=== PATIENT | female | born 1985 | race American Indian/Alaskan Native ===

== ENCOUNTER 2020-11-21 17:38 | Outpatient (CLI) | payer OTHER, MEDICAID ==
[2020-11-21 18:20] VITALS: BP 119/77
[2020-11-21] MEDS ORDERED: ACETAMINOPHEN 500 MG TAB PO ONE (19:54)
[2020-11-21] MEDS ORDERED: LACTATED RINGERS 500 ML IV ONE (20:41)
== END 2020-11-21 19:23 | disposition home or self-care (01) ==
LOC: TRG 17:38 → LD 17:43 → APU 17:54 → TRG 19:23
PROVIDERS: ATTEND Obstetrics & Gynecology
DX: Z34.93 Encounter for supervision of normal pregnancy, unspecified, third trimester (principal); Z3A.31 31 weeks gestation of pregnancy
CPT/HCPCS: 59025

== ENCOUNTER 2021-02-06 19:55 | Outpatient (CLI) | payer OTHER, MEDICAID ==
[2021-02-06 20:44] VITALS: BP 128/75
[2021-02-06] MEDS ORDERED: LACTATED RINGERS 500 ML IV ONE (20:45)
[2021-02-06] MEDS ORDERED: LACTATED RINGERS 1,000 ML IV ONE (21:15)
[2021-02-06] MEDS ORDERED: TERBUTALINE 1 MG/1 ML INJ SUB-Q PRN (21:15)
[2021-02-06 21:42] LABS: Bacteria,Urine 1+ /HPF (Negative); Bilirubin,Urine NEG (Negative); Blood,Urine MOD (Negative); Calcium Oxalate Crystals,Urine 1+; Color,Urine Yellow (Yellow); Mucus,Urine 2+ /HPF; Protein,Urine <15 mg/dL mg/dL (Negative); Urobilinogen,Urine < 2.0 mg/dL (<2.0)
== END 2021-02-06 22:55 | disposition home or self-care (01) ==
LOC: TRG 19:55 → APU 19:58 → TRG 22:55
PROVIDERS: ATTEND Obstetrics & Gynecology
DX: O36.8130 Decreased fetal movements, third trimester, not applicable or unspecified (principal); O26.893 Other specified pregnancy related conditions, third trimester; R10.30 Lower abdominal pain, unspecified; O09.523 Supervision of elderly multigravida, third trimester; Z3A.32 32 weeks gestation of pregnancy
CPT/HCPCS: 59025; 81001; 96360; 96372; J3105; J7120

== ENCOUNTER 2021-03-03 21:43 | Inpatient (IN) | payer OTHER, MEDICAID ==
[2021-03-03] MEDS ORDERED: LACTATED RINGERS 1,000 ML IV ONE (23:27)
[2021-03-03] MEDS: LACTATED RINGERS 1,000 ML IV SCH (23:55)
[2021-03-04 00:01] LABS: Bacteria,Urine 2+ /HPF (Negative); Bilirubin,Urine NEG (Negative); Blood,Urine MOD (Negative); Calcium Oxalate Crystals,Urine 2+; Color,Urine Amber (Yellow); Hyaline Casts,Urine 2 /LPF; Mucus,Urine 3+ /HPF
[2021-03-04 00:02] LABS: Protein,Urine >500 mg/dL (Negative)
--- NOTE | 2021-03-04 00:13 | Event Note ---
Date: 03/03/21 36.1 wks EGA Pt presents to triage with c/o blurred vision and LITTLE, both of which have resolved spontaneously. Pt denies h/o preE. Recent visit's BP and labs in office reviewed with Dr. Arellano. BP severe range at this time. Orders placed for continued monitoring of BP for SSx of worsening, continuous monitoring, start IV and give 20mg labetalol IV stat, strict I&O, and repeated labs at this time. Monitor closely. Notify provider with any changes in status. RN notified and agrees to POC as ordered. Dr. Arellano made aware.
[2021-03-04 00:25] LABS: Hematocrit 36.5 % (30.3-42.9); Hemoglobin 12.5 gm/dl (10.1-14.3); Mean Corpuscular HGB Conc 34 % (30-34); Mean Corpuscular Volume 88 fl (79-97); Platelet Count 410 K/mm3 (140-440); Red Blood Count 4.15 M/mm3 (3.65-5.03); Red Cell Distribution Width 14.6 % (13.2-15.2)
[2021-03-04 00:48] LABS: Alanine Aminotransferase 13 units/L (7-56); Albumin 3.3 g/dL (3.9-5); Blood Urea Nitrogen 7 mg/dL (7-17); Calcium 9.4 mg/dL (8.4-10.2); Hemolysis Index 9
[2021-03-04 01:34] LABS: BUN/Creatinine Ratio 12; Bilirubin,Direct < 0.2 mg/dL (0-0.2)
[2021-03-04] MEDS ORDERED: MAGNESIUM SULFATE 4 GM/100 ML BAG IV ONE (01:50)
--- NOTE | 2021-03-04 01:59 | History and Physical Report ---
History of Present Illness Date of examination: 03/04/21 Chief complaint: blurred vision History of present illness: EDC Confirmation: 03/30/2021 Past History : 5 Term Births: 1 Premature Births: 1 Living Children: 2 Para: 2 Mult. Births: 0 Prev : 0 Prev. attempt? 0 Aborta: 2 Elect. Ab: 0 Spont. Ab: 2 Ectopics: 0 # 1 Delivery date: 2004 Weeks Gestation: 34 labor: yes Delivery type: Anesthesia type: epidural Delivery [place] Sex: Male weight: 7-14 Comments: Denies GDM # 2 Delivery date: 2006 Weeks Gestation: 4 Delivery type: SAB Comments: denies any complications # 3 Delivery date: 2006 Weeks Gestation: 36 Delivery type: Anesthesia type: epidural Delivery location: [place] 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 Infection History Hx of STD: none HIV Risk Eval: no Hepatitis B Risk Eval: low risk Personal hx. of genital herpes: no Partner hx. of genital herpes: no Rash, Viral, or Febrile illness since last LMP? no Varicella/Chicken Pox Status: Unknown TB Risk: no Genetic History ADVANCED MATERNAL AGE Congenital Heart Defect: Mom: no Dad: no Vega Disease: Mom: no Dad: no Thalassemia Mom: no Dad: no Neural Tube Defect Mom: no Dad: no Down's Syndrome Mom: no Dad: no Jeff-Sachs Mom: no Dad: no Sickle Cell Disease/Trait Mom: no Dad: no Hemophilia Mom: no Dad: no Muscular Dystrophy Mom: no Dad: no Cystic Fibrosis Mom: no Dad: no Sam Chorea Mom: no Dad: no Mental Retardation Mom: no Dad: no Fragile X Mom: no Dad: no Other Genetic/Chromosomal Disorder Mom: no Dad: no Child w/other defect Mom: no Dad: no Enviromental Exposures Xray Exposure: no Medication, drug, or alcohol use since LMP: no Chemical/Other Exposure: no Exposure to Cat Liter: no Hx of Parvovirus (Fifth Disease): no Occupational Exposure to Children: none Current Allergies (reviewed today): * POLLEN (Critical) * GRASS (Critical) * DUSTMITES (Critical) * CATS (Critical) * PEANUT BUTTER (Critical) Past History Past Medical History: other (see HPI) Past Surgical History: other (see HPI) [employer] History: other (see HPI) Family/Genetic History: other (SEE HPI) Social history: other (SEE HPI) - Obstetrical History Expected Date of Delivery: 03/30/21 Actual Gestation: 36 Week(s) 2 Day(s) : 5 Para: 2 Hx # Term Pregnancies: 1 Number of Pregnancies: 1 Spontaneous Abortions: 2 Induced : 0 Number of Living Children: 2 Medications and Allergies Allergies Allergy/AdvReac Type Severity Reaction Status Date / Time soy Allergy Intermediate Swelling Verified 03/04/21 04:36 latex Allergy Mild Hives Verified 03/04/21 04:36 peanut Allergy Mild Itching Verified 03/04/21 04:36 shellfish derived Allergy Mild Hives Verified 03/04/21 04:36 Home Medications Medication Instructions Recorded Confirmed Last Taken Type No Known Home Medications [No 08/01/15 08/01/15 Unknown History Reported Home Medications] Active Meds: Active Medications Lactated Ringer's (Lactated Ringers) 1,000 mls @ 125 mls/hr IV DIRECT SANDRA Last Admin: 03/03/21 23:55 Dose: 125 mls/hr Documented by: Magnesium Sulfate (Magnesium Sulfate 4gm/100ml) 4 gm in 100 mls @ 300 mls/hr IV ONCE ONE Stop: 03/04/21 02:09 Magnesium Sulfate (Magnesium Sulfate 40gm/1000ml) 40 gm in 1,000 mls @ 50 mls/hr IV DIRECT SANDRA Labetalol HCl (Labetalol 20 Mg/4 Ml Inj) 40 mg IV ONCE ONE Stop: 03/04/21 02:36 Review of Systems Constitutional: no chronic headaches Eyes: no blurred vision (NONE CURRENTLY), no tunnel vision, no blind spots Cardiovascular: no chest pain Respiratory: no shortness of breath Gastrointestinal: no abdominal pain Genitourinary: no vaginal bleeding, no leakage of fluid, no contractions Neurological: no headaches - Vital Signs Vital signs: Vital Signs Pulse Pulse Ox 92 H 98 03/03/21 23:11 03/03/21 23:11 Temp Pulse Resp BP Pulse Ox 97.7 F 96 H 18 159/94 97 03/04/21 00:48 03/04/21 01:47 03/03/21 23:13 03/04/21 01:38 03/04/21 01:47 - Physical Exam Breasts: Positive: deferred Cardiovascular: Regular rate Lungs: Positive: Normal air movement Abdomen: Positive: normal appearance, soft Genitourinary (Female): Positive: normal external genitalia, normal perenium Vulva: both: normal Vagina: Positive: normal moisture Uterus: Positive: normal size, normal contour, other (GRAVID) Anus/Rectum: Positive: normal perianal skin Extremities: Positive: normal - Obstetrical FHR: auscultation normal, category 1 Uterine Contraction Monitor Mode: External Cervical Dilatation: 0 Cervical Effacement Percentage: 0 station: -4 Uterine Contraction Pattern: Irregular Uterine Tone Measurement Phase: Resting Results Result Diagrams: 03/04/21 00:00 03/04/21 00:00 Abnormal lab results 03/03/21 03/04/21 03/04/21 Range/Units 23:30 00:00 00:00 WBC 11.4 H (4.5-11.0) K/mm3 Carbon Dioxide 20 L (22-30) mmol/L Albumin 3.3 L (3.9-5) g/dL Urine WBC (Auto) 13.0 H (0.0-6.0) /HPF All other labs normal. Tests: (1) Profile I ([id number]) Order Note: Clinical Information: SRC:UR HBsAg Screen Negative Negative *1 RPR Non Reactive Non Reactive *2 Rubella Antibodies, IgG 4.77 index Immune >0.99 *3 Non-immune <0.90 Equivocal 0.90 - 0.99 Immune >0.99 ABO Grouping O *4 Rh Factor Positive *5 Please note: Prior records for this patient's ABO / Rh type are not available for additional verification. Antibody Screen Negative Negative *6 WBC [H] 12.0 x10E3/uL 3.4-10.8 *7 RBC 4.12 x10E6/uL 3.77-5.28 *8 Hemoglobin 13.0 g/dL 11.1-15.9 *9 Hematocrit 38.3 % 34.0-46.6 *10 MCV 93 fL 79-97 *11 MCH 31.6 pg 26.6-33.0 *12 MCHC 33.9 g/dL 31.5-35.7 *13 RDW 12.8 % 11.7-15.4 *14 Platelets 406 x10E3/uL 150-450 *15 Neutrophils 78 % Not Estab. *16 Lymphs 14 % Not Estab. *17 Monocytes 6 % Not Estab. *18 Eos 1 % Not Estab. *19 Basos 0 % Not Estab. *20 ! Immature Cells <No Reported Value> *21 Neutrophils (Absolute) [H] 9.5 x10E3/uL 1.4-7.0 *22 Lymphs (Absolute) 1.6 x10E3/uL 0.7-3.1 *23 Monocytes(Absolute) 0.7 x10E3/uL 0.1-0.9 *24 Eos (Absolute) 0.1 x10E3/uL 0.0-0.4 *25 Baso (Absolute) 0.0 x10E3/uL 0.0-0.2 *26 ! Immature Granulocytes 1 % Not Estab. *27 ! Immature Grans (Abs) 0.1 x10E3/uL 0.0-0.1 *28 ! NRBC <No Reported Value> *29 Hematology Comments: <No Reported Value> *30 Tests: (2) HB Solu + Rflx Fra ([id number]) Hemoglobin (Hgb) Solubility Negative Negative *31 Tests: (3) HIV Ag/Ab with Reflex ([id number]) HIV Screen 4th Generation wRfx Non Reactive Non Reactive *32 Tests: (4) Varicella-Zoster V Ab, IgG ([id number]) ! Varicella Zoster IgG 1065 index Immune >165 *33 Negative <135 Equivocal 135 - 165 Positive >165 A positive result generally indicates exposure to the pathogen or administration of specific immunoglobulins, but it is not indication of active infection or stage of disease. Tests: (5) Gest. Diabetes 1-Hr Screen ([id number]) ! Gestational Diabetes Screen 108 mg/dL 65-139 *34 According to ADA, a glucose threshold of >139 mg/dL after 50-gram load identifies approximately 80% of women with gestational diabetes mellitus, while the sensitivity is further increased to approximately 90% by a threshold of >129 mg/dL. Tests: (6) HCV Ab w/Rflx to Verification ([id number]) ! HCV Ab <0.1 s/co ratio 0.0-0.9 *35 Tests: (7) Comment: ([id number]) ! Comment: SPRCS *36 Non reactive HCV antibody screen is consistent with no HCV infection, unless recent infection is suspected or other evidence exists to indicate HCV infection. Tests: (8) Urine Culture, Routine ([id number]) Urine Culture, Routine Final report *37 Tests: (9) Result ([id number]) ! Result 1 "Result Below..." *38 RESULT: Lactobacillus species 25,000-50,000 colony forming units per mL Susceptibility not normally performed on this organism. Assessment and Plan Phone call received for severe range BP. Orders given for labetalol 40mg IV now. Orders placed in EMR for Magnesium Sulfate IV. FHT's strip reviewed Cat 1. POC reviewed with pt and RN. Questions encouraged. Pt is without questions at this time, verbalizes understanding and agrees to POC. Dr. Arellano updated. Orders received to proceed with delivery for severe preeclampsia. - Patient Problems (1) Preeclampsia Current Visit: Yes Status: Acute Plan to address problem: Magnesium Sulfate ordered for seizure protection strict I&O preE labs IV antihypertensives PRN for severe range BP monitor closely for SSx of worsening preeclampsia and notify provider with any changes (2) 36 weeks gestation of Current Visit: Yes Status: Acute Plan to address problem: continuous monitoring AMFM consult ordered
[2021-03-04 02:48] LABS: Creatinine,Urine 131.8 mg/dL (0.1-20.0)
[2021-03-04] MEDS ORDERED: hydrALAZINE 20 MG/1 ML INJ IV ONE (03:16)
[2021-03-04] MEDS ORDERED: DINOPROSTONE 10 MG VAG SUPP VG ONE (03:44)
[2021-03-04] MEDS: MAGNESIUM SULFATE 40GM/1000ML 40 GM/1,000 ML BAG IV SCH (04:44)
[2021-03-04] MEDS: LACTATED RINGERS 1,000 ML IV SCH (06:32)
--- NOTE | 2021-03-04 07:58 | Progress Note ---
Assessment and Plan 35 yo @ 36.3 wks IOL w/ Cervidil for Severe Pre-E. Cont. Mag @ 2gm/hr, reassess PRN. - Patient Problems (1) 36 weeks gestation of Current Visit: Yes Status: Acute (2) Preeclampsia Current Visit: Yes Status: Acute Qualifiers: Trimester: third trimester Qualified Code(s): O14.93 - Unspecified pre- eclampsia, third trimester Plan to address problem: Mag 2gm/hr Strict I&Os Mag Levels q6hr IOL to start this AM w/ Cervidil Subjective - Subjective Date of service: 03/04/21 Principal diagnosis: IUP @ 36.3wks IOL for Severe Pre-E Patient reports: movement normal, other (h/a 06/10), no loss of fluid, no vaginal bleeding, no contractions Objective - Vital Signs Vital Signs: Vital Signs - 12hr 03/03/21 03/03/21 03/03/21 23:11 23:12 23:13 Temperature 98.7 F Pulse Rate 92 H 100 H 93 H Respiratory 18 Rate Blood Pressure 174/101 Blood Pressure 169/99 [Left] O2 Sat by Pulse 98 97 Oximetry O2 Sat by Pulse Oximetry [ Bilateral] 03/03/21 03/03/21 03/03/21 23:16 23:21 23:26 Temperature Pulse Rate 94 H 109 H 97 H Respiratory Rate Blood Pressure Blood Pressure [Left] O2 Sat by Pulse 98 98 97 Oximetry O2 Sat by Pulse Oximetry [ Bilateral] 03/03/21 03/03/21 03/03/21 23:27 23:31 23:36 Temperature Pulse Rate 90 95 H 97 H Respiratory Rate Blood Pressure 169/99 Blood Pressure [Left] O2 Sat by Pulse 98 98 Oximetry O2 Sat by Pulse Oximetry [ Bilateral] 03/03/21 03/03/21 03/03/21 23:41 23:42 23:46 Temperature Pulse Rate 95 H 97 H 96 H Respiratory Rate Blood Pressure 162/96 Blood Pressure [Left] O2 Sat by Pulse 99 98 Oximetry O2 Sat by Pulse Oximetry [ Bilateral] 03/03/21 03/03/21 03/03/21 23:51 23:56 23:58 Temperature Pulse Rate 97 H 95 H 87 Respiratory Rate Blood Pressure Blood Pressure [Left] O2 Sat by Pulse 99 98 93 Oximetry O2 Sat by Pulse Oximetry [ Bilateral] 03/04/21 03/04/21 03/04/21 00:00 00:01 00:06 Temperature Pulse Rate 86 89 98 H Respiratory Rate Blood Pressure 152/106 Blood Pressure [Left] O2 Sat by Pulse 98 98 Oximetry O2 Sat by Pulse Oximetry [ Bilateral] 03/04/21 03/04/21 03/04/21 00:08 00:09 00:11 Temperature Pulse Rate 96 H 100 H 91 H Respiratory Rate Blood Pressure 152/106 Blood Pressure [Left] O2 Sat by Pulse 94 98 Oximetry O2 Sat by Pulse Oximetry [ Bilateral] 03/04/21 03/04/21 03/04/21 00:13 00:16 00:42 Temperature Pulse Rate 90 97 H 93 H Respiratory Rate Blood Pressure 136/89 Blood Pressure [Left] O2 Sat by Pulse 98 98 Oximetry O2 Sat by Pulse Oximetry [ Bilateral] 03/04/21 03/04/21 03/04/21 00:47 00:48 00:52 Temperature 97.7 F Pulse Rate 99 H 93 H Respiratory Rate Blood Pressure Blood Pressure [Left] O2 Sat by Pulse 97 98 Oximetry O2 Sat by Pulse 97 Oximetry [ Bilateral] 03/04/21 03/04/21 03/04/21 00:53 00:57 01:02 Temperature Pulse Rate 98 H 94 H 95 H Respiratory Rate Blood Pressure 149/89 Blood Pressure [Left] O2 Sat by Pulse 93 98 98 Oximetry O2 Sat by Pulse Oximetry [ Bilateral] 03/04/21 03/04/21 03/04/21 01:07 01:08 01:12 Temperature Pulse Rate 97 H 95 H 94 H Respiratory Rate Blood Pressure 175/98 Blood Pressure [Left] O2 Sat by Pulse 99 98 Oximetry O2 Sat by Pulse Oximetry [ Bilateral] 03/04/21 03/04/21 03/04/21 01:17 01:22 01:24 Temperature Pulse Rate 88 93 H 91 H Respiratory Rate Blood Pressure 177/98 Blood Pressure [Left] O2 Sat by Pulse 98 97 Oximetry O2 Sat by Pulse Oximetry [ Bilateral] 03/04/21 03/04/21 03/04/21 01:27 01:32 01:37 Temperature Pulse Rate 95 H 92 H 92 H Respiratory Rate Blood Pressure Blood Pressure [Left] O2 Sat by Pulse 99 99 98 Oximetry O2 Sat by Pulse Oximetry [ Bilateral] 03/04/21 03/04/21 03/04/21 01:38 01:42 01:47 Temperature Pulse Rate 89 92 H 96 H Respiratory Rate Blood Pressure 159/94 Blood Pressure [Left] O2 Sat by Pulse 94 97 97 Oximetry O2 Sat by Pulse Oximetry [ Bilateral] 03/04/21 03/04/21 03/04/21 01:55 01:57 02:00 Temperature Pulse Rate 100 H 100 H 91 H Respiratory Rate Blood Pressure 179/100 Blood Pressure [Left] O2 Sat by Pulse 97 90 97 Oximetry O2 Sat by Pulse Oximetry [ Bilateral] 03/04/21 03/04/21 03/04/21 02:04 02:05 02:07 Temperature Pulse Rate 97 H 91 H 96 H Respiratory Rate Blood Pressure 179/100 160/94 Blood Pressure [Left] O2 Sat by Pulse 97 94 Oximetry O2 Sat by Pulse Oximetry [ Bilateral] 03/04/21 03/04/21 03/04/21 02:10 02:15 02:20 Temperature Pulse Rate 90 92 H 95 H Respiratory Rate Blood Pressure Blood Pressure [Left] O2 Sat by Pulse 97 98 97 Oximetry O2 Sat by Pulse Oximetry [ Bilateral] 03/04/21 03/04/21 03/04/21 02:23 02:25 02:28 Temperature Pulse Rate 99 H 95 H 97 H Respiratory Rate Blood Pressure 179/91 159/79 Blood Pressure [Left] O2 Sat by Pulse 90 98 90 Oximetry O2 Sat by Pulse Oximetry [ Bilateral] 03/04/21 03/04/21 03/04/21 02:30 02:35 02:38 Temperature Pulse Rate 96 H 95 H 91 H Respiratory Rate Blood Pressure 141/86 Blood Pressure [Left] O2 Sat by Pulse 99 98 89 Oximetry O2 Sat by Pulse Oximetry [ Bilateral] 03/04/21 03/04/21 03/04/21 02:40 02:45 02:50 Temperature Pulse Rate 86 90 94 H Respiratory Rate Blood Pressure Blood Pressure [Left] O2 Sat by Pulse 100 96 97 Oximetry O2 Sat by Pulse Oximetry [ Bilateral] 03/04/21 03/04/21 03/04/21 02:53 02:55 03:00 Temperature Pulse Rate 87 93 H 97 H Respiratory Rate Blood Pressure 136/84 Blood Pressure [Left] O2 Sat by Pulse 92 98 98 Oximetry O2 Sat by Pulse Oximetry [ Bilateral] 03/04/21 03/04/21 03/04/21 03:04 03:07 03:10 Temperature Pulse Rate 91 H 93 H 93 H Respiratory Rate Blood Pressure 133/83 Blood Pressure [Left] O2 Sat by Pulse 97 93 97 Oximetry O2 Sat by Pulse Oximetry [ Bilateral] 03/04/21 03/04/21 03/04/21 03:15 03:20 03:23 Temperature Pulse Rate 94 H 96 H 98 H Respiratory Rate Blood Pressure 130/66 Blood Pressure [Left] O2 Sat by Pulse 96 96 93 Oximetry O2 Sat by Pulse Oximetry [ Bilateral] 03/04/21 03/04/21 03/04/21 03:25 03:30 03:35 Temperature Pulse Rate 101 H 93 H 92 H Respiratory Rate Blood Pressure Blood Pressure [Left] O2 Sat by Pulse 98 97 96 Oximetry O2 Sat by Pulse Oximetry [ Bilateral] 03/04/21 03/04/21 03/04/21 03:37 03:40 03:45 Temperature Pulse Rate 85 98 H 92 H Respiratory Rate Blood Pressure 133/72 Blood Pressure [Left] O2 Sat by Pulse 92 96 97 Oximetry O2 Sat by Pulse Oximetry [ Bilateral] 03/04/21 03/04/21 03/04/21 03:50 03:52 03:55 Temperature Pulse Rate 98 H 95 H 101 H Respiratory Rate Blood Pressure 135/75 Blood Pressure [Left] O2 Sat by Pulse 97 94 97 Oximetry O2 Sat by Pulse Oximetry [ Bilateral] 03/04/21 03/04/21 03/04/21 04:00 04:05 04:07 Temperature Pulse Rate 93 H 93 H 91 H Respiratory Rate Blood Pressure 138/79 Blood Pressure [Left] O2 Sat by Pulse 97 97 Oximetry O2 Sat by Pulse Oximetry [ Bilateral] 03/04/21 03/04/21 03/04/21 04:10 04:15 04:20 Temperature Pulse Rate 92 H 91 H 95 H Respiratory Rate Blood Pressure Blood Pressure [Left] O2 Sat by Pulse 97 97 97 Oximetry O2 Sat by Pulse Oximetry [ Bilateral] 03/04/21 03/04/21 03/04/21 04:22 04:25 04:30 Temperature Pulse Rate 97 H 100 H 91 H Respiratory Rate Blood Pressure 124/63 Blood Pressure [Left] O2 Sat by Pulse 94 97 97 Oximetry O2 Sat by Pulse Oximetry [ Bilateral] 03/04/21 03/04/21 03/04/21 04:35 04:37 04:40 Temperature Pulse Rate 97 H 94 H 92 H Respiratory Rate Blood Pressure 130/61 Blood Pressure [Left] O2 Sat by Pulse 98 90 98 Oximetry O2 Sat by Pulse Oximetry [ Bilateral] 03/04/21 03/04/21 03/04/21 04:45 04:50 04:52 Temperature Pulse Rate 89 89 87 Respiratory Rate Blood Pressure 133/71 Blood Pressure [Left] O2 Sat by Pulse 98 98 Oximetry O2 Sat by Pulse Oximetry [ Bilateral] 03/04/21 03/04/21 03/04/21 04:55 05:00 05:05 Temperature Pulse Rate 90 94 H 100 H Respiratory Rate Blood Pressure Blood Pressure [Left] O2 Sat by Pulse 97 98 97 Oximetry O2 Sat by Pulse Oximetry [ Bilateral] 03/04/21 03/04/21 03/04/21 05:08 05:10 05:15 Temperature Pulse Rate 94 H 90 93 H Respiratory Rate Blood Pressure 141/80 Blood Pressure [Left] O2 Sat by Pulse 98 97 Oximetry O2 Sat by Pulse Oximetry [ Bilateral] 03/04/21 03/04/21 03/04/21 05:20 05:22 05:25 Temperature Pulse Rate 93 H 93 H 96 H Respiratory Rate Blood Pressure 131/73 Blood Pressure [Left] O2 Sat by Pulse 98 92 99 Oximetry O2 Sat by Pulse Oximetry [ Bilateral] 03/04/21 03/04/21 03/04/21 05:30 05:35 05:38 Temperature Pulse Rate 92 H 92 H 91 H Respiratory Rate Blood Pressure 131/72 Blood Pressure [Left] O2 Sat by Pulse 97 98 93 Oximetry O2 Sat by Pulse Oximetry [ Bilateral] 03/04/21 03/04/21 03/04/21 05:40 05:45 05:50 Temperature Pulse Rate 90 89 93 H Respiratory Rate Blood Pressure Blood Pressure [Left] O2 Sat by Pulse 97 97 97 Oximetry O2 Sat by Pulse Oximetry [ Bilateral] 03/04/21 03/04/21 03/04/21 05:52 05:55 06:00 Temperature Pulse Rate 89 92 H 90 Respiratory Rate Blood Pressure 130/68 Blood Pressure [Left] O2 Sat by Pulse 94 96 96 Oximetry O2 Sat by Pulse Oximetry [ Bilateral] 03/04/21 03/04/21 03/04/21 06:05 06:07 06:08 Temperature Pulse Rate 98 H 84 88 Respiratory Rate Blood Pressure 138/83 Blood Pressure [Left] O2 Sat by Pulse 98 94 Oximetry O2 Sat by Pulse Oximetry [ Bilateral] 03/04/21 03/04/21 03/04/21 06:10 06:15 06:20 Temperature Pulse Rate 88 96 H 87 Respiratory Rate Blood Pressure Blood Pressure [Left] O2 Sat by Pulse 97 96 99 Oximetry O2 Sat by Pulse Oximetry [ Bilateral] 03/04/21 03/04/21 03/04/21 06:23 06:25 06:30 Temperature Pulse Rate 88 94 H 90 Respiratory Rate Blood Pressure 152/87 Blood Pressure [Left] O2 Sat by Pulse 99 99 Oximetry O2 Sat by Pulse Oximetry [ Bilateral] 03/04/21 03/04/21 03/04/21 06:35 06:37 06:40 Temperature Pulse Rate 94 H 93 H 90 Respiratory Rate Blood Pressure 154/89 Blood Pressure [Left] O2 Sat by Pulse 99 99 Oximetry O2 Sat by Pulse Oximetry [ Bilateral] 03/04/21 03/04/21 03/04/21 06:45 06:50 06:52 Temperature Pulse Rate 90 89 89 Respiratory Rate Blood Pressure 148/83 Blood Pressure [Left] O2 Sat by Pulse 98 98 Oximetry O2 Sat by Pulse Oximetry [ Bilateral] 03/04/21 03/04/21 03/04/21 06:55 06:59 07:05 Temperature Pulse Rate 92 H 91 H 93 H Respiratory Rate Blood Pressure Blood Pressure [Left] O2 Sat by Pulse 98 99 99 Oximetry O2 Sat by Pulse Oximetry [ Bilateral] 03/04/21 03/04/21 03/04/21 07:08 07:10 07:15 Temperature Pulse Rate 93 H 92 H 89 Respiratory Rate Blood Pressure 141/70 Blood Pressure [Left] O2 Sat by Pulse 98 98 Oximetry O2 Sat by Pulse Oximetry [ Bilateral] 03/04/21 03/04/21 03/04/21 07:19 07:20 07:25 Temperature 97.7 F Pulse Rate 97 H 91 H 98 H Respiratory 18 Rate Blood Pressure Blood Pressure 141/70 [Left] O2 Sat by Pulse 98 98 99 Oximetry O2 Sat by Pulse 99 Oximetry [ Bilateral] 03/04/21 03/04/21 03/04/21 07:30 07:35 07:40 Temperature Pulse Rate 90 93 H 93 H Respiratory Rate Blood Pressure Blood Pressure [Left] O2 Sat by Pulse 98 98 97 Oximetry O2 Sat by Pulse Oximetry [ Bilateral] 03/04/21 03/04/21 07:45 07:50 Temperature Pulse Rate 88 93 H Respiratory Rate Blood Pressure Blood Pressure [Left] O2 Sat by Pulse 98 97 Oximetry O2 Sat by Pulse Oximetry [ Bilateral] - Exam Lungs: Normal air movement Abdomen: Present: normal appearance, soft FHR: category 2 Uterine Contraction Monitor Mode: External Uterine Contraction Pattern: Absent - Labs Labs: Abnormal Labs 03/03/21 03/04/21 03/04/21 23:30 00:00 00:00 WBC 11.4 H Carbon Dioxide 20 L Albumin 3.3 L Urine WBC (Auto) 13.0 H Urine Creatinine Urine Total Protein 03/04/21 Unknown WBC Carbon Dioxide Albumin Urine WBC (Auto) Urine Creatinine 131.8 H Urine Total Protein 263 H Laboratory Results - last 24 hr 03/03/21 03/04/21 03/04/21 23:30 00:00 00:00 WBC 11.4 H RBC 4.15 Hgb 12.5 Hct 36.5 MCV 88 MCH 30 MCHC 34 RDW 14.6 Plt Count 410 Sodium 139 Potassium 3.6 Chloride 105.2 Carbon Dioxide 20 L Anion Gap 17 BUN 7 Creatinine 0.6 Estimated GFR > 60 BUN/Creatinine Ratio 12 Glucose 98 Uric Acid Calcium 9.4 Total Bilirubin 0.30 Direct Bilirubin < 0.2 Indirect Bilirubin 0.1 AST 21 ALT 13 Alkaline Phosphatase 116 Total Protein 6.9 Albumin 3.3 L Albumin/Globulin Ratio 0.9 Urine Color Jocelyn Urine Turbidity Cloudy Urine pH 5.0 Ur Specific [place] 1.030 Urine Protein >500 Urine Glucose (UA) 50 Urine Ketones Tr Urine Blood Mod Urine Nitrite Neg Urine Bilirubin Neg Urine Urobilinogen 2.0 Ur Leukocyte Esterase Neg Urine WBC (Auto) 13.0 H Urine RBC (Auto) 74.0 U Epithel Cells (Auto) 6.0 Urine Bacteria (Auto) 2+ Calcium Oxalate Crystal 2+ Hyaline Casts 2 Urine Mucus 3+ Urine Yeast (Budding) 1+ Urine Creatinine Protein/Creatinin Ratio Urine Total Protein Syphilis IgG Antibody Blood Type Antibody Screen 03/04/21 03/04/21 03/04/21 00:00 00:00 00:00 WBC RBC Hgb Hct MCV MCH MCHC RDW Plt Count Sodium Potassium Chloride Carbon Dioxide Anion Gap BUN Creatinine Estimated GFR BUN/Creatinine Ratio Glucose Uric Acid 4.6 Calcium Total Bilirubin Direct Bilirubin Indirect Bilirubin AST ALT Alkaline Phosphatase Total Protein Albumin Albumin/Globulin Ratio Urine Color Urine Turbidity Urine pH Ur Specific [place] Urine Protein Urine Glucose (UA) Urine Ketones Urine Blood Urine Nitrite Urine Bilirubin Urine Urobilinogen Ur Leukocyte Esterase Urine WBC (Auto) Urine RBC (Auto) U Epithel Cells (Auto) Urine Bacteria (Auto) Calcium Oxalate Crystal Hyaline Casts Urine Mucus Urine Yeast (Budding) Urine Creatinine Protein/Creatinin Ratio Urine Total Protein Syphilis IgG Antibody Nonreactive Blood Type O POSITIVE Antibody Screen Negative 03/04/21 Unknown WBC RBC Hgb Hct MCV MCH MCHC RDW Plt Count Sodium Potassium Chloride Carbon Dioxide Anion Gap BUN Creatinine Estimated GFR BUN/Creatinine Ratio Glucose Uric Acid Calcium Total Bilirubin Direct Bilirubin Indirect Bilirubin AST ALT Alkaline Phosphatase Total Protein Albumin Albumin/Globulin Ratio Urine Color Urine Turbidity Urine pH Ur Specific [place] Urine Protein Urine Glucose (UA) Urine Ketones Urine Blood Urine Nitrite Urine Bilirubin Urine Urobilinogen Ur Leukocyte Esterase Urine WBC (Auto) Urine RBC (Auto) U Epithel Cells (Auto) Urine Bacteria (Auto) Calcium Oxalate Crystal Hyaline Casts Urine Mucus Urine Yeast (Budding) Urine Creatinine 131.8 H Protein/Creatinin Ratio 2.00 Urine Total Protein 263 H Syphilis IgG Antibody Blood Type Antibody Screen
[2021-03-04] MEDS ORDERED: DINOPROSTONE 10 MG VAG SUPP VG SCH (08:30)
[2021-03-04] MEDS ORDERED: ACETAMINOPHEN 500 MG TAB PO ONE (17:30)
--- NOTE | 2021-03-04 20:27 | Progress Note ---
Assessment and Plan A: 35 y.o. @ 36.3 wks, IOL d/t severe pre eclampsia. Cervical exam /-3. P: Continue with magnesium infusion. Ultrasound to verify presentation. Cervidil removed. Subjective - Subjective Date of service: 03/04/21 Principal diagnosis: IUP @ 36.3wks IOL for Severe Pre-E Patient reports: movement normal, contractions Objective - Vital Signs Vital Signs: Vital Signs - 12hr 03/04/21 03/04/21 03/04/21 08:25 08:30 08:35 Temperature Pulse Rate 96 H 98 H 92 H Respiratory Rate Blood Pressure Blood Pressure [Left] O2 Sat by Pulse 99 98 99 Oximetry 03/04/21 03/04/21 03/04/21 08:40 08:45 08:50 Temperature Pulse Rate 89 87 89 Respiratory Rate Blood Pressure Blood Pressure [Left] O2 Sat by Pulse 98 99 99 Oximetry 03/04/21 03/04/21 03/04/21 08:55 09:00 09:05 Temperature Pulse Rate 95 H 91 H 90 Respiratory Rate Blood Pressure Blood Pressure [Left] O2 Sat by Pulse 99 99 99 Oximetry 03/04/21 03/04/21 03/04/21 09:10 09:14 09:15 Temperature Pulse Rate 94 H 93 H 93 H Respiratory Rate Blood Pressure 146/74 Blood Pressure [Left] O2 Sat by Pulse 98 96 Oximetry 03/04/21 03/04/21 03/04/21 09:20 09:25 09:30 Temperature Pulse Rate 92 H 99 H 95 H Respiratory Rate Blood Pressure Blood Pressure [Left] O2 Sat by Pulse 99 98 97 Oximetry 03/04/21 03/04/21 03/04/21 09:35 09:40 09:45 Temperature Pulse Rate 94 H 92 H 94 H Respiratory Rate Blood Pressure Blood Pressure [Left] O2 Sat by Pulse 97 97 96 Oximetry 03/04/21 03/04/21 03/04/21 09:50 09:55 09:59 Temperature Pulse Rate 96 H 95 H 93 H Respiratory Rate Blood Pressure 135/69 Blood Pressure [Left] O2 Sat by Pulse 95 96 Oximetry 03/04/21 03/04/21 03/04/21 10:00 10:05 10:10 Temperature Pulse Rate 96 H 93 H 94 H Respiratory Rate Blood Pressure Blood Pressure [Left] O2 Sat by Pulse 92 98 97 Oximetry 03/04/21 03/04/21 03/04/21 10:14 10:15 10:20 Temperature Pulse Rate 96 H 95 H 105 H Respiratory Rate Blood Pressure 135/61 Blood Pressure [Left] O2 Sat by Pulse 94 99 Oximetry 03/04/21 03/04/21 03/04/21 10:25 10:30 10:35 Temperature Pulse Rate 93 H 94 H 85 Respiratory Rate Blood Pressure Blood Pressure [Left] O2 Sat by Pulse 98 98 99 Oximetry 03/04/21 03/04/21 03/04/21 10:40 10:45 10:50 Temperature Pulse Rate 93 H 103 H 97 H Respiratory Rate Blood Pressure Blood Pressure [Left] O2 Sat by Pulse 99 99 96 Oximetry 03/04/21 03/04/21 03/04/21 10:55 11:00 11:05 Temperature Pulse Rate 92 H 93 H 97 H Respiratory Rate Blood Pressure Blood Pressure [Left] O2 Sat by Pulse 98 97 97 Oximetry 03/04/21 03/04/21 03/04/21 11:09 11:10 11:15 Temperature 98.1 F Pulse Rate 95 H 91 H 98 H Respiratory 17 Rate Blood Pressure 148/85 Blood Pressure 148/85 [Left] O2 Sat by Pulse 97 99 Oximetry 03/04/21 03/04/21 03/04/21 11:20 11:25 11:30 Temperature Pulse Rate 91 H 92 H 94 H Respiratory Rate Blood Pressure Blood Pressure [Left] O2 Sat by Pulse 97 96 98 Oximetry 03/04/21 03/04/21 03/04/21 11:35 11:40 11:45 Temperature Pulse Rate 101 H 95 H 97 H Respiratory Rate Blood Pressure Blood Pressure [Left] O2 Sat by Pulse 98 99 99 Oximetry 03/04/21 03/04/21 03/04/21 11:50 11:55 12:00 Temperature Pulse Rate 99 H 95 H 96 H Respiratory Rate Blood Pressure Blood Pressure [Left] O2 Sat by Pulse 97 97 99 Oximetry 03/04/21 03/04/21 03/04/21 12:05 12:09 12:10 Temperature Pulse Rate 101 H 94 H 96 H Respiratory Rate Blood Pressure 147/84 Blood Pressure [Left] O2 Sat by Pulse 98 93 96 Oximetry 03/04/21 03/04/21 03/04/21 12:15 12:18 12:19 Temperature Pulse Rate 95 H 97 H 99 H Respiratory Rate Blood Pressure Blood Pressure [Left] O2 Sat by Pulse 96 94 96 Oximetry 03/04/21 03/04/21 03/04/21 12:23 12:25 12:30 Temperature Pulse Rate 96 H 95 H 95 H Respiratory Rate Blood Pressure Blood Pressure [Left] O2 Sat by Pulse 94 95 98 Oximetry 03/04/21 03/04/21 03/04/21 12:34 12:35 12:40 Temperature Pulse Rate 100 H 97 H 98 H Respiratory Rate Blood Pressure Blood Pressure [Left] O2 Sat by Pulse 93 95 94 Oximetry 03/04/21 03/04/21 03/04/21 12:45 12:50 12:55 Temperature Pulse Rate 104 H 98 H 99 H Respiratory Rate Blood Pressure Blood Pressure [Left] O2 Sat by Pulse 96 98 98 Oximetry 03/04/21 03/04/21 03/04/21 13:00 13:05 13:09 Temperature Pulse Rate 99 H 99 H 101 H Respiratory Rate Blood Pressure 127/68 Blood Pressure [Left] O2 Sat by Pulse 98 97 94 Oximetry 03/04/21 03/04/21 03/04/21 13:10 13:15 13:20 Temperature Pulse Rate 100 H 99 H 100 H Respiratory Rate Blood Pressure Blood Pressure [Left] O2 Sat by Pulse 97 97 97 Oximetry 03/04/21 03/04/21 03/04/21 13:25 13:28 13:30 Temperature Pulse Rate 101 H 105 H 105 H Respiratory Rate Blood Pressure Blood Pressure [Left] O2 Sat by Pulse 96 91 97 Oximetry 03/04/21 03/04/21 03/04/21 13:35 13:40 13:45 Temperature Pulse Rate 99 H 97 H 98 H Respiratory Rate Blood Pressure Blood Pressure [Left] O2 Sat by Pulse 98 98 97 Oximetry 03/04/21 03/04/21 03/04/21 13:50 13:55 14:00 Temperature Pulse Rate 98 H 95 H 101 H Respiratory Rate Blood Pressure Blood Pressure [Left] O2 Sat by Pulse 99 94 97 Oximetry 03/04/21 03/04/21 03/04/21 14:05 14:10 14:11 Temperature Pulse Rate 101 H 92 H 100 H Respiratory Rate Blood Pressure 147/87 Blood Pressure [Left] O2 Sat by Pulse 98 97 92 Oximetry 10/09/1903/04/21 03/04/21 14:15 14:20 14:25 Temperature Pulse Rate 107 H 99 H 96 H Respiratory Rate Blood Pressure Blood Pressure [Left] O2 Sat by Pulse 97 97 96 Oximetry 03/04/21 03/04/21 03/04/21 14:30 14:32 14:35 Temperature Pulse Rate 95 H 99 H 99 H Respiratory Rate Blood Pressure Blood Pressure [Left] O2 Sat by Pulse 95 94 95 Oximetry 03/04/21 03/04/21 03/04/21 14:37 14:40 14:45 Temperature Pulse Rate 95 H 93 H 100 H Respiratory Rate Blood Pressure Blood Pressure [Left] O2 Sat by Pulse 94 96 97 Oximetry 03/04/21 03/04/21 03/04/21 14:50 14:52 14:55 Temperature 98.2 F Pulse Rate 92 H 96 H 90 Respiratory 18 Rate Blood Pressure Blood Pressure 147/87 [Left] O2 Sat by Pulse 96 96 97 Oximetry 03/04/21 03/04/21 03/04/21 15:00 15:05 15:09 Temperature Pulse Rate 90 91 H 95 H Respiratory Rate Blood Pressure 115/53 Blood Pressure [Left] O2 Sat by Pulse 97 97 94 Oximetry 03/04/21 03/04/21 03/04/21 15:10 15:15 15:18 Temperature Pulse Rate 96 H 94 H 91 H Respiratory Rate Blood Pressure Blood Pressure [Left] O2 Sat by Pulse 96 96 93 Oximetry 03/04/21 03/04/21 03/04/21 15:20 15:24 15:25 Temperature Pulse Rate 96 H 94 H 95 H Respiratory Rate Blood Pressure Blood Pressure [Left] O2 Sat by Pulse 97 94 94 Oximetry 03/04/21 03/04/21 03/04/21 15:29 15:30 15:35 Temperature Pulse Rate 95 H 96 H 95 H Respiratory Rate Blood Pressure Blood Pressure [Left] O2 Sat by Pulse 94 95 95 Oximetry 03/04/21 03/04/21 03/04/21 15:40 15:45 15:50 Temperature Pulse Rate 96 H 94 H 92 H Respiratory Rate Blood Pressure Blood Pressure [Left] O2 Sat by Pulse 96 98 97 Oximetry 03/04/21 03/04/21 03/04/21 15:55 16:00 16:05 Temperature Pulse Rate 89 92 H 95 H Respiratory Rate Blood Pressure Blood Pressure [Left] O2 Sat by Pulse 97 98 98 Oximetry 03/04/21 03/04/21 03/04/21 16:10 16:15 16:20 Temperature Pulse Rate 94 H 92 H 90 Respiratory Rate Blood Pressure 114/52 Blood Pressure [Left] O2 Sat by Pulse 93 98 97 Oximetry 03/04/21 03/04/21 03/04/21 16:25 16:30 16:35 Temperature Pulse Rate 92 H 87 91 H Respiratory Rate Blood Pressure Blood Pressure [Left] O2 Sat by Pulse 97 98 98 Oximetry 03/04/21 03/04/21 03/04/21 16:40 16:45 16:50 Temperature Pulse Rate 93 H 85 95 H Respiratory Rate Blood Pressure Blood Pressure [Left] O2 Sat by Pulse 97 99 98 Oximetry 03/04/21 03/04/21 03/04/21 16:55 17:00 17:05 Temperature Pulse Rate 87 89 90 Respiratory Rate Blood Pressure Blood Pressure [Left] O2 Sat by Pulse 98 96 97 Oximetry 03/04/21 03/04/21 03/04/21 17:09 17:10 17:15 Temperature Pulse Rate 90 92 H 94 H Respiratory Rate Blood Pressure 133/66 Blood Pressure [Left] O2 Sat by Pulse 97 98 Oximetry 03/04/21 03/04/21 03/04/21 17:40 17:45 17:50 Temperature Pulse Rate 86 88 90 Respiratory Rate Blood Pressure Blood Pressure [Left] O2 Sat by Pulse 99 97 97 Oximetry 03/04/21 03/04/21 03/04/21 17:55 18:00 18:05 Temperature Pulse Rate 89 86 92 H Respiratory Rate Blood Pressure Blood Pressure [Left] O2 Sat by Pulse 98 98 98 Oximetry 03/04/21 03/04/21 03/04/21 18:10 18:11 18:15 Temperature Pulse Rate 90 88 89 Respiratory Rate Blood Pressure 131/59 Blood Pressure [Left] O2 Sat by Pulse 93 98 Oximetry 03/04/21 03/04/21 03/04/21 18:20 18:25 18:30 Temperature Pulse Rate 88 87 84 Respiratory Rate Blood Pressure Blood Pressure [Left] O2 Sat by Pulse 99 98 98 Oximetry 03/04/21 03/04/21 03/04/21 18:35 18:40 18:45 Temperature Pulse Rate 84 87 86 Respiratory Rate Blood Pressure Blood Pressure [Left] O2 Sat by Pulse 97 98 98 Oximetry 03/04/21 03/04/21 03/04/21 18:50 18:55 19:00 Temperature Pulse Rate 86 88 88 Respiratory Rate Blood Pressure Blood Pressure [Left] O2 Sat by Pulse 97 98 97 Oximetry 03/04/21 03/04/21 03/04/21 19:05 19:10 19:15 Temperature Pulse Rate 84 86 89 Respiratory Rate Blood Pressure 131/73 Blood Pressure [Left] O2 Sat by Pulse 98 93 97 Oximetry 03/04/21 03/04/21 03/04/21 19:20 19:25 19:30 Temperature Pulse Rate 86 83 85 Respiratory Rate Blood Pressure Blood Pressure [Left] O2 Sat by Pulse 97 98 97 Oximetry 03/04/21 03/04/21 03/04/21 19:35 19:40 19:45 Temperature Pulse Rate 85 88 90 Respiratory Rate Blood Pressure Blood Pressure [Left] O2 Sat by Pulse 98 99 97 Oximetry 03/04/21 03/04/21 03/04/21 19:50 19:55 20:00 Temperature Pulse Rate 93 H 93 H 83 Respiratory Rate Blood Pressure Blood Pressure [Left] O2 Sat by Pulse 97 96 97 Oximetry 03/04/21 03/04/21 03/04/21 20:05 20:10 20:15 Temperature Pulse Rate 90 86 88 Respiratory Rate Blood Pressure 141/82 Blood Pressure [Left] O2 Sat by Pulse 97 99 98 Oximetry 03/04/21 20:20 Temperature Pulse Rate 87 Respiratory Rate Blood Pressure Blood Pressure [Left] O2 Sat by Pulse 98 Oximetry - Exam Narrative Exam: Pt denies LITTLE, blurred vision, spots before her eyes, chest pain, shortness of breath, and upper abdominal pain. Pt with c/o a lot of ctxs. Cervical exam /-3. Unable to tell presenting part at this time. Will order u/s to verify. Breasts: deferred Cardiovascular: Regular rate Lungs: Normal air movement Abdomen: Present: normal appearance, soft Vulva: both: normal Uterus: Present: normal FHR: category 1 Uterine Contraction Monitor Mode: External Cervical Dilatation: 3 Cervical Effacement Percentage: 70 station: -3 Uterine Contraction Pattern: Regular Uterine Tone Measurement Phase: Resting Uterine Contraction Intensity: Moderate - Labs Labs: Abnormal Labs 03/03/21 03/04/21 03/04/21 23:30 00:00 00:00 WBC 11.4 H Carbon Dioxide 20 L Magnesium Albumin 3.3 L Urine WBC (Auto) 13.0 H Urine Creatinine Urine Total Protein 03/04/21 03/04/21 13:58 Unknown WBC Carbon Dioxide Magnesium 4.30 H Albumin Urine WBC (Auto) Urine Creatinine 131.8 H Urine Total Protein 263 H Laboratory Results - last 24 hr 03/03/21 03/04/21 03/04/21 23:30 00:00 00:00 WBC 11.4 H RBC 4.15 Hgb 12.5 Hct 36.5 MCV 88 MCH 30 MCHC 34 RDW 14.6 Plt Count 410 Sodium 139 Potassium 3.6 Chloride 105.2 Carbon Dioxide 20 L Anion Gap 17 BUN 7 Creatinine 0.6 Estimated GFR > 60 BUN/Creatinine Ratio 12 Glucose 98 Uric Acid Calcium 9.4 Magnesium Total Bilirubin 0.30 Direct Bilirubin < 0.2 Indirect Bilirubin 0.1 AST 21 ALT 13 Alkaline Phosphatase 116 Total Protein 6.9 Albumin 3.3 L Albumin/Globulin Ratio 0.9 Urine Color Jocelyn Urine Turbidity Cloudy Urine pH 5.0 Ur Specific [place] 1.030 Urine Protein >500 Urine Glucose (UA) 50 Urine Ketones Tr Urine Blood Mod Urine Nitrite Neg Urine Bilirubin Neg Urine Urobilinogen 2.0 Ur Leukocyte Esterase Neg Urine WBC (Auto) 13.0 H Urine RBC (Auto) 74.0 U Epithel Cells (Auto) 6.0 Urine Bacteria (Auto) 2+ Calcium Oxalate Crystal 2+ Hyaline Casts 2 Urine Mucus 3+ Urine Yeast (Budding) 1+ Urine Creatinine Protein/Creatinin Ratio Urine Total Protein Syphilis IgG Antibody Blood Type Antibody Screen 03/04/21 03/04/21 03/04/21 00:00 00:00 00:00 WBC RBC Hgb Hct MCV MCH MCHC RDW Plt Count Sodium Potassium Chloride Carbon Dioxide Anion Gap BUN Creatinine Estimated GFR BUN/Creatinine Ratio Glucose Uric Acid 4.6 Calcium Magnesium Total Bilirubin Direct Bilirubin Indirect Bilirubin AST ALT Alkaline Phosphatase Total Protein Albumin Albumin/Globulin Ratio Urine Color Urine Turbidity Urine pH Ur Specific [place] Urine Protein Urine Glucose (UA) Urine Ketones Urine Blood Urine Nitrite Urine Bilirubin Urine Urobilinogen Ur Leukocyte Esterase Urine WBC (Auto) Urine RBC (Auto) U Epithel Cells (Auto) Urine Bacteria (Auto) Calcium Oxalate Crystal Hyaline Casts Urine Mucus Urine Yeast (Budding) Urine Creatinine Protein/Creatinin Ratio Urine Total Protein Syphilis IgG Antibody Nonreactive Blood Type O POSITIVE Antibody Screen Negative 03/04/21 03/04/21 13:58 Unknown WBC RBC Hgb Hct MCV MCH MCHC RDW Plt Count Sodium Potassium Chloride Carbon Dioxide Anion Gap BUN Creatinine Estimated GFR BUN/Creatinine Ratio Glucose Uric Acid Calcium Magnesium 4.30 H Total Bilirubin Direct Bilirubin Indirect Bilirubin AST ALT Alkaline Phosphatase Total Protein Albumin Albumin/Globulin Ratio Urine Color Urine Turbidity Urine pH Ur Specific [place] Urine Protein Urine Glucose (UA) Urine Ketones Urine Blood Urine Nitrite Urine Bilirubin Urine Urobilinogen Ur Leukocyte Esterase Urine WBC (Auto) Urine RBC (Auto) U Epithel Cells (Auto) Urine Bacteria (Auto) Calcium Oxalate Crystal Hyaline Casts Urine Mucus Urine Yeast (Budding) Urine Creatinine 131.8 H Protein/Creatinin Ratio 2.00 Urine Total Protein 263 H Syphilis IgG Antibody Blood Type Antibody Screen
[2021-03-04] MEDS ORDERED: OXYTOCIN DRIP 30 UNITS/500 ML BAG IV SCH (21:00)
[2021-03-04] MEDS ORDERED: MAGNESIUM HYDROXIDE (MOM) ORAL LIQD UDC PO PRN (21:26)
[2021-03-04] MEDS ORDERED: ALUM-MAG HYDROXIDE-SIMETHICONE 200-200-20MG/5ML ORAL LIQD 30 ML PO PRN (21:26)
--- NOTE | 2021-03-04 21:37 | Ultrasound Report ---
ULTRASOUND OBSTETRIC LIMITED INDICATION / CLINICAL INFORMATION: Presentation. Clinical Gestational Age (GA) in weeks, days: 36 weeks 2 days TECHNIQUE: Transabdominal. COMPARISON: None available. FINDINGS: HEART RATE (beats per minute): Cadena gestation with heart rate of 133 PRESENTATION: Cephalic. ADDITIONAL FINDINGS: None. IMPRESSION: 1. Cadena gestation with cephalic presentation as above. Signer Name: Shiva Lopez MD Signed: 03/04/2021 9:33 PM Workstation Name: [id number]
[2021-03-04] MEDS ORDERED: AMPICILLIN/NS 2 GM/100 ML 2 GM/100 ML BAG IV ONE (22:00)
[2021-03-05] MEDS: MAGNESIUM SULFATE 40GM/1000ML 40 GM/1,000 ML BAG IV SCH (01:45)
[2021-03-05] MEDS ORDERED: AMPICILLIN/NS 1 GM/50 ML 1 GM/50 ML BAG IV SCH ×2 (02:00→02:35)
[2021-03-05] MEDS ORDERED: hydrALAZINE 20 MG/1 ML INJ IV ONE (02:03)
--- NOTE | 2021-03-05 02:10 | Progress Note ---
Assessment and Plan A: 35 y.o. @ 36.4 wks, IOL d/t severe Pre E. Cervical exam . Possible SROM. Elevated blood pressures. P: Continue with magnesium infusion. Hydralazine 10mg IV ordered. ROM +test sent to lab to assess for SROM. Pt being prepped for epidural placement. Will start Pitocin. Continue to monitor for worsening s/sx of pre eclampsia. Subjective - Subjective Date of service: 03/05/21 (Possible SROM, elevated blood pressures) Principal diagnosis: IUP @ 36.4 wks IOL for Severe Pre-E Patient reports: movement normal, contractions Objective - Vital Signs Vital Signs: Vital Signs - 12hr 03/04/21 03/04/21 03/04/21 14:10 14:11 14:15 Temperature Pulse Rate 92 H 100 H 107 H Respiratory Rate Blood Pressure 147/87 Blood Pressure [Left] O2 Sat by Pulse 97 92 97 Oximetry O2 Sat by Pulse Oximetry [ Bilateral] 03/04/21 03/04/21 03/04/21 14:20 14:25 14:30 Temperature Pulse Rate 99 H 96 H 95 H Respiratory Rate Blood Pressure Blood Pressure [Left] O2 Sat by Pulse 97 96 95 Oximetry O2 Sat by Pulse Oximetry [ Bilateral] 03/04/21 03/04/21 03/04/21 14:32 14:35 14:37 Temperature Pulse Rate 99 H 99 H 95 H Respiratory Rate Blood Pressure Blood Pressure [Left] O2 Sat by Pulse 94 95 94 Oximetry O2 Sat by Pulse Oximetry [ Bilateral] 03/04/21 03/04/21 03/04/21 14:40 14:45 14:50 Temperature Pulse Rate 93 H 100 H 92 H Respiratory Rate Blood Pressure Blood Pressure [Left] O2 Sat by Pulse 96 97 96 Oximetry O2 Sat by Pulse Oximetry [ Bilateral] 03/04/21 03/04/21 03/04/21 14:52 14:55 15:00 Temperature 98.2 F Pulse Rate 96 H 90 90 Respiratory 18 Rate Blood Pressure Blood Pressure 147/87 [Left] O2 Sat by Pulse 96 97 97 Oximetry O2 Sat by Pulse Oximetry [ Bilateral] 03/04/21 03/04/21 03/04/21 15:05 15:09 15:10 Temperature Pulse Rate 91 H 95 H 96 H Respiratory Rate Blood Pressure 115/53 Blood Pressure [Left] O2 Sat by Pulse 97 94 96 Oximetry O2 Sat by Pulse Oximetry [ Bilateral] 03/04/21 03/04/21 03/04/21 15:15 15:18 15:20 Temperature Pulse Rate 94 H 91 H 96 H Respiratory Rate Blood Pressure Blood Pressure [Left] O2 Sat by Pulse 96 93 97 Oximetry O2 Sat by Pulse Oximetry [ Bilateral] 03/04/21 03/04/21 03/04/21 15:24 15:25 15:29 Temperature Pulse Rate 94 H 95 H 95 H Respiratory Rate Blood Pressure Blood Pressure [Left] O2 Sat by Pulse 94 94 94 Oximetry O2 Sat by Pulse Oximetry [ Bilateral] 03/04/21 03/04/21 03/04/21 15:30 15:35 15:40 Temperature Pulse Rate 96 H 95 H 96 H Respiratory Rate Blood Pressure Blood Pressure [Left] O2 Sat by Pulse 95 95 96 Oximetry O2 Sat by Pulse Oximetry [ Bilateral] 03/04/21 03/04/21 03/04/21 15:45 15:50 15:55 Temperature Pulse Rate 94 H 92 H 89 Respiratory Rate Blood Pressure Blood Pressure [Left] O2 Sat by Pulse 98 97 97 Oximetry O2 Sat by Pulse Oximetry [ Bilateral] 03/04/21 03/04/21 03/04/21 16:00 16:05 16:10 Temperature Pulse Rate 92 H 95 H 94 H Respiratory Rate Blood Pressure 114/52 Blood Pressure [Left] O2 Sat by Pulse 98 98 93 Oximetry O2 Sat by Pulse Oximetry [ Bilateral] 03/04/21 03/04/21 03/04/21 16:15 16:20 16:25 Temperature Pulse Rate 92 H 90 92 H Respiratory Rate Blood Pressure Blood Pressure [Left] O2 Sat by Pulse 98 97 97 Oximetry O2 Sat by Pulse Oximetry [ Bilateral] 03/04/21 03/04/21 03/04/21 16:30 16:35 16:40 Temperature Pulse Rate 87 91 H 93 H Respiratory Rate Blood Pressure Blood Pressure [Left] O2 Sat by Pulse 98 98 97 Oximetry O2 Sat by Pulse Oximetry [ Bilateral] 03/04/21 03/04/21 03/04/21 16:45 16:50 16:55 Temperature Pulse Rate 85 95 H 87 Respiratory Rate Blood Pressure Blood Pressure [Left] O2 Sat by Pulse 99 98 98 Oximetry O2 Sat by Pulse Oximetry [ Bilateral] 03/04/21 03/04/21 03/04/21 17:00 17:05 17:09 Temperature Pulse Rate 89 90 90 Respiratory Rate Blood Pressure 133/66 Blood Pressure [Left] O2 Sat by Pulse 96 97 Oximetry O2 Sat by Pulse Oximetry [ Bilateral] 03/04/21 03/04/21 03/04/21 17:10 17:15 17:40 Temperature Pulse Rate 92 H 94 H 86 Respiratory Rate Blood Pressure Blood Pressure [Left] O2 Sat by Pulse 97 98 99 Oximetry O2 Sat by Pulse Oximetry [ Bilateral] 03/04/21 03/04/21 03/04/21 17:45 17:50 17:55 Temperature Pulse Rate 88 90 89 Respiratory Rate Blood Pressure Blood Pressure [Left] O2 Sat by Pulse 97 97 98 Oximetry O2 Sat by Pulse Oximetry [ Bilateral] 03/04/21 03/04/21 03/04/21 18:00 18:05 18:10 Temperature Pulse Rate 86 92 H 90 Respiratory Rate Blood Pressure Blood Pressure [Left] O2 Sat by Pulse 98 98 93 Oximetry O2 Sat by Pulse Oximetry [ Bilateral] 03/04/21 03/04/21 03/04/21 18:11 18:15 18:20 Temperature Pulse Rate 88 89 88 Respiratory Rate Blood Pressure 131/59 Blood Pressure [Left] O2 Sat by Pulse 98 99 Oximetry O2 Sat by Pulse Oximetry [ Bilateral] 03/04/21 03/04/21 03/04/21 18:25 18:30 18:35 Temperature Pulse Rate 87 84 84 Respiratory Rate Blood Pressure Blood Pressure [Left] O2 Sat by Pulse 98 98 97 Oximetry O2 Sat by Pulse Oximetry [ Bilateral] 03/04/21 03/04/21 03/04/21 18:40 18:45 18:50 Temperature Pulse Rate 87 86 86 Respiratory Rate Blood Pressure Blood Pressure [Left] O2 Sat by Pulse 98 98 97 Oximetry O2 Sat by Pulse Oximetry [ Bilateral] 03/04/21 03/04/21 03/04/21 18:55 19:00 19:05 Temperature Pulse Rate 88 88 84 Respiratory Rate Blood Pressure Blood Pressure [Left] O2 Sat by Pulse 98 97 98 Oximetry O2 Sat by Pulse Oximetry [ Bilateral] 03/04/21 03/04/21 03/04/21 19:10 19:15 19:20 Temperature Pulse Rate 86 89 86 Respiratory Rate Blood Pressure 131/73 Blood Pressure [Left] O2 Sat by Pulse 93 97 97 Oximetry O2 Sat by Pulse Oximetry [ Bilateral] 03/04/21 03/04/21 03/04/21 19:25 19:30 19:35 Temperature Pulse Rate 83 85 85 Respiratory Rate Blood Pressure Blood Pressure [Left] O2 Sat by Pulse 98 97 98 Oximetry O2 Sat by Pulse 98 Oximetry [ Bilateral] 03/04/21 03/04/21 03/04/21 19:40 19:45 19:50 Temperature Pulse Rate 88 90 93 H Respiratory Rate Blood Pressure Blood Pressure [Left] O2 Sat by Pulse 99 97 97 Oximetry O2 Sat by Pulse Oximetry [ Bilateral] 03/04/21 03/04/21 03/04/21 19:55 20:00 20:05 Temperature Pulse Rate 93 H 83 90 Respiratory Rate Blood Pressure Blood Pressure [Left] O2 Sat by Pulse 96 97 97 Oximetry O2 Sat by Pulse Oximetry [ Bilateral] 03/04/21 03/04/21 03/04/21 20:10 20:15 20:20 Temperature Pulse Rate 86 88 87 Respiratory Rate Blood Pressure 141/82 Blood Pressure [Left] O2 Sat by Pulse 99 98 98 Oximetry O2 Sat by Pulse Oximetry [ Bilateral] 03/04/21 03/04/21 03/04/21 20:25 20:30 20:35 Temperature Pulse Rate 89 87 90 Respiratory Rate Blood Pressure Blood Pressure [Left] O2 Sat by Pulse 97 96 96 Oximetry O2 Sat by Pulse Oximetry [ Bilateral] 03/04/21 03/04/21 03/04/21 20:40 20:45 20:50 Temperature Pulse Rate 94 H 87 89 Respiratory Rate Blood Pressure Blood Pressure [Left] O2 Sat by Pulse 97 96 96 Oximetry O2 Sat by Pulse Oximetry [ Bilateral] 03/04/21 03/04/21 03/04/21 20:55 20:59 21:00 Temperature Pulse Rate 98 H 86 88 Respiratory Rate Blood Pressure Blood Pressure [Left] O2 Sat by Pulse 97 94 96 Oximetry O2 Sat by Pulse Oximetry [ Bilateral] 03/04/21 03/04/21 03/04/21 21:05 21:09 21:10 Temperature Pulse Rate 93 H 90 89 Respiratory Rate Blood Pressure 154/81 Blood Pressure [Left] O2 Sat by Pulse 97 90 97 Oximetry O2 Sat by Pulse Oximetry [ Bilateral] 03/04/21 03/04/21 03/04/21 21:15 21:20 21:25 Temperature Pulse Rate 88 90 90 Respiratory Rate Blood Pressure Blood Pressure [Left] O2 Sat by Pulse 98 96 97 Oximetry O2 Sat by Pulse Oximetry [ Bilateral] 03/04/21 03/04/21 03/04/21 21:30 21:32 21:33 Temperature Pulse Rate 90 85 Respiratory Rate Blood Pressure 160/93 160/93 Blood Pressure [Left] O2 Sat by Pulse 98 91 Oximetry O2 Sat by Pulse Oximetry [ Bilateral] 03/04/21 03/04/21 03/04/21 21:35 21:40 21:45 Temperature Pulse Rate 93 H 100 H 88 Respiratory Rate Blood Pressure Blood Pressure [Left] O2 Sat by Pulse 98 99 98 Oximetry O2 Sat by Pulse Oximetry [ Bilateral] 03/04/21 03/04/21 03/04/21 21:50 21:55 22:00 Temperature Pulse Rate 88 88 85 Respiratory Rate Blood Pressure Blood Pressure [Left] O2 Sat by Pulse 96 97 99 Oximetry O2 Sat by Pulse Oximetry [ Bilateral] 03/04/21 03/04/21 03/04/21 22:05 22:10 22:15 Temperature Pulse Rate 85 85 90 Respiratory Rate Blood Pressure Blood Pressure [Left] O2 Sat by Pulse 98 98 98 Oximetry O2 Sat by Pulse Oximetry [ Bilateral] 03/04/21 03/04/21 03/04/21 22:20 22:25 22:30 Temperature Pulse Rate 90 83 85 Respiratory Rate Blood Pressure Blood Pressure [Left] O2 Sat by Pulse 97 97 96 Oximetry O2 Sat by Pulse Oximetry [ Bilateral] 03/04/21 03/04/21 03/04/21 22:32 22:35 22:40 Temperature Pulse Rate 89 88 85 Respiratory Rate Blood Pressure 129/75 Blood Pressure [Left] O2 Sat by Pulse 89 98 97 Oximetry O2 Sat by Pulse Oximetry [ Bilateral] 03/04/21 03/04/21 03/04/21 22:45 22:50 22:55 Temperature Pulse Rate 86 82 87 Respiratory Rate Blood Pressure Blood Pressure [Left] O2 Sat by Pulse 95 96 97 Oximetry O2 Sat by Pulse Oximetry [ Bilateral] 03/04/21 03/04/21 03/04/21 23:00 23:05 23:10 Temperature Pulse Rate 85 85 87 Respiratory Rate Blood Pressure Blood Pressure [Left] O2 Sat by Pulse 96 96 98 Oximetry O2 Sat by Pulse Oximetry [ Bilateral] 03/04/21 03/04/21 03/04/21 23:15 23:20 23:25 Temperature Pulse Rate 85 82 87 Respiratory Rate Blood Pressure Blood Pressure [Left] O2 Sat by Pulse 98 98 97 Oximetry O2 Sat by Pulse Oximetry [ Bilateral] 03/04/21 03/04/21 03/04/21 23:30 23:34 23:35 Temperature Pulse Rate 84 88 86 Respiratory Rate Blood Pressure 124/68 Blood Pressure [Left] O2 Sat by Pulse 97 93 97 Oximetry O2 Sat by Pulse Oximetry [ Bilateral] 03/04/21 03/04/21 03/04/21 23:40 23:45 23:50 Temperature Pulse Rate 79 37 L 98 H Respiratory Rate Blood Pressure Blood Pressure [Left] O2 Sat by Pulse 97 97 98 Oximetry O2 Sat by Pulse Oximetry [ Bilateral] 03/04/21 03/05/21 03/05/21 23:55 00:00 00:05 Temperature Pulse Rate 91 H 91 H 90 Respiratory Rate Blood Pressure Blood Pressure [Left] O2 Sat by Pulse 97 97 97 Oximetry O2 Sat by Pulse Oximetry [ Bilateral] 03/05/21 03/05/21 03/05/21 00:09 00:11 00:17 Temperature Pulse Rate 84 89 75 Respiratory Rate Blood Pressure Blood Pressure [Left] O2 Sat by Pulse 86 99 96 Oximetry O2 Sat by Pulse Oximetry [ Bilateral] 03/05/21 03/05/21 03/05/21 00:22 00:27 00:32 Temperature Pulse Rate 81 83 90 Respiratory Rate Blood Pressure Blood Pressure [Left] O2 Sat by Pulse 98 98 97 Oximetry O2 Sat by Pulse Oximetry [ Bilateral] 03/05/21 03/05/21 03/05/21 00:33 00:37 00:42 Temperature Pulse Rate 85 92 H 88 Respiratory Rate Blood Pressure 142/65 Blood Pressure [Left] O2 Sat by Pulse 97 99 Oximetry O2 Sat by Pulse Oximetry [ Bilateral] 03/05/21 03/05/21 03/05/21 00:47 00:52 00:57 Temperature Pulse Rate 86 82 87 Respiratory Rate Blood Pressure Blood Pressure [Left] O2 Sat by Pulse 98 98 97 Oximetry O2 Sat by Pulse Oximetry [ Bilateral] 03/05/21 03/05/21 03/05/21 01:02 01:07 01:12 Temperature Pulse Rate 82 91 H 91 H Respiratory Rate Blood Pressure Blood Pressure [Left] O2 Sat by Pulse 98 99 98 Oximetry O2 Sat by Pulse Oximetry [ Bilateral] 03/05/21 03/05/21 03/05/21 01:17 01:22 01:27 Temperature Pulse Rate 88 81 92 H Respiratory Rate Blood Pressure Blood Pressure [Left] O2 Sat by Pulse 97 99 98 Oximetry O2 Sat by Pulse Oximetry [ Bilateral] 03/05/21 03/05/21 03/05/21 01:32 01:33 01:37 Temperature Pulse Rate 95 H 92 H 86 Respiratory Rate Blood Pressure 161/76 Blood Pressure [Left] O2 Sat by Pulse 96 91 97 Oximetry O2 Sat by Pulse Oximetry [ Bilateral] 03/05/21 03/05/21 03/05/21 01:42 01:47 01:52 Temperature Pulse Rate 85 88 96 H Respiratory Rate Blood Pressure 197/104 Blood Pressure [Left] O2 Sat by Pulse 99 99 91 Oximetry O2 Sat by Pulse Oximetry [ Bilateral] 03/05/21 03/05/21 01:57 02:02 Temperature Pulse Rate 88 87 Respiratory Rate Blood Pressure Blood Pressure [Left] O2 Sat by Pulse 96 98 Oximetry O2 Sat by Pulse Oximetry [ Bilateral] - Exam Narrative Exam: Pt states that she started leaking some fluid before I enter the room to assess her. A small amount of yellow looking fluid noticed on peripad. Unsure of SROM. Will send ROM + test to lab. Also of note, her blood pressures [place] in [place] [address] and the repeat was 194/104. Consulted with Dr. Stock. Hydralazine 10 mg IV ordered. She continues to deny s/sx of worsening pre eclampsia. Will continue to monitor blood pressures closely. Breasts: deferred Cardiovascular: Regular rate Lungs: Normal air movement Abdomen: Present: normal appearance, soft Vulva: both: normal Uterus: Present: normal FHR: category 1 Uterine Contraction Monitor Mode: External Cervical Dilatation: 4 (Small amount of yellow colored fluid on peripad. ) Cervical Effacement Percentage: 70 station: -3 Uterine Contraction Pattern: Regular Uterine Tone Measurement Phase: Resting Uterine Contraction Intensity: Moderate - Labs Labs: Abnormal Labs 03/03/21 03/04/21 03/04/21 23:30 00:00 00:00 WBC 11.4 H Carbon Dioxide 20 L Magnesium Albumin 3.3 L Urine WBC (Auto) 13.0 H Urine Creatinine Urine Total Protein 03/04/21 03/04/21 03/04/21 13:58 19:53 Unknown WBC Carbon Dioxide Magnesium 4.30 H 4.70 H Albumin Urine WBC (Auto) Urine Creatinine 131.8 H Urine Total Protein 263 H Laboratory Results - last 24 hr 03/04/21 03/04/21 03/04/21 13:58 19:53 Unknown Magnesium 4.30 H 4.70 H Urine Creatinine 131.8 H Protein/Creatinin Ratio 2.00 Urine Total Protein 263 H
[2021-03-05] MEDS ORDERED: NALOXONE 2 MG/2 ML INJ IV PRN (02:20)
[2021-03-05] MEDS ORDERED: ePHEDrine SULFATE 50 MG/1 ML INJ IV PRN (02:20)
--- NOTE | 2021-03-05 02:20 | Anesthesia Consultation ---
Anesthesia Consult and Med Hx Date of service: 03/05/21 - Airway Anesthetic Teeth Evaluation: Good ROM Head & Neck: Adequate Mental/Hyoid Distance: Adequate Mallampati Class: Class II Intubation Access Assessment: Probably Good - Pulmonary Exam CTA: Yes - Cardiac Exam Cardiac Exam: RRR - Pre-Operative Health Status ASA Pre-Surgery Classification: ASA3 Proposed Anesthetic Plan: Epidural - Pulmonary Hx Asthma: No - Cardiovascular System Hx Hypertension: Yes (pre-e) - Central Nervous System Hx Seizures: No Hx Psychiatric Problems: No - Endocrine Hx Renal Disease: No Hx Hypothyroidism: No Hx Hyperthyroidism: No - Hematic Hx Anemia: No Hx Sickle Cell Disease: No - Other Systems Hx Alcohol Use: (not since ) Hx Obesity: Yes
[2021-03-05] MEDS ORDERED: fentaNYL-BUPIV 2 MCG/ML-0.125% 200 MCG/100 ML BAG EPIDURAL SCH (03:00)
[2021-03-05 04:10] LABS: Hematocrit 36.1 % (30.3-42.9); Hemoglobin 12.3 gm/dl (10.1-14.3); Mean Corpuscular HGB Conc 34 % (30-34); Mean Corpuscular Volume 89 fl (79-97); Platelet Count 404 K/mm3 (140-440); Red Blood Count 4.07 M/mm3 (3.65-5.03); Red Cell Distribution Width 14.6 % (13.2-15.2)
--- NOTE | 2021-03-05 04:43 | Progress Note ---
Labor Epidural - Labor Epidural Start Time: 04:30 Stop Time: 04:36 Performed by:: ROOPA VERGARA Procedure: Patient is requesting epidural for labor pain. H&P, and labs reviewed. Procedure explained, questions answered, consent obtained. Patient in sitting position with blood pressure cuff and pulse ox on and working. Timeout performed immediately before start of procedure. Sterile chlorahexadine 0.5% prep/drape. 3 mL 1% lidocaine skin wheal at L[3]-L[4]. 17-gauge tuohy epidural needle advanced to [id number] with saline at [7] cm. 25-gauge spinal needle advanced until clear, free-flowing CSF. Intrathecal dexmedetomidine [5] mcg administered and needle removed. Epidural catheter advanced to [12] cm, negative aspiration for blood and csf, negative test dose 3 ml 1.5% lidocaine with epinephrine. Sterile sponge and tegaderm applied, followed by tape reinforcement. Patient tolerated procedure well.
--- NOTE | 2021-03-05 05:34 | Progress Note ---
Assessment and Plan A: 35 y.o. @ 36.4 wks, IOL d/t severe Pre E. Cervical exam 3. P: Mag and Pitocin infusion turned off for now. Ephedrine given per order. Will continue to monitor labor, blood pressures closely. Subjective - Subjective Principal diagnosis: IUP @ 36.4 wks IOL for Severe Pre-E Patient reports: movement normal, contractions Objective - Vital Signs Vital Signs: Vital Signs - 12hr 03/04/21 03/04/21 03/04/21 17:40 17:45 17:50 Pulse Rate 86 88 90 Blood Pressure O2 Sat by Pulse 99 97 97 Oximetry O2 Sat by Pulse Oximetry [ Bilateral] 03/04/21 03/04/21 03/04/21 17:55 18:00 18:05 Pulse Rate 89 86 92 H Blood Pressure O2 Sat by Pulse 98 98 98 Oximetry O2 Sat by Pulse Oximetry [ Bilateral] 03/04/21 03/04/21 03/04/21 18:10 18:11 18:15 Pulse Rate 90 88 89 Blood Pressure 131/59 O2 Sat by Pulse 93 98 Oximetry O2 Sat by Pulse Oximetry [ Bilateral] 03/04/21 03/04/21 03/04/21 18:20 18:25 18:30 Pulse Rate 88 87 84 Blood Pressure O2 Sat by Pulse 99 98 98 Oximetry O2 Sat by Pulse Oximetry [ Bilateral] 03/04/21 03/04/21 03/04/21 18:35 18:40 18:45 Pulse Rate 84 87 86 Blood Pressure O2 Sat by Pulse 97 98 98 Oximetry O2 Sat by Pulse Oximetry [ Bilateral] 03/04/21 03/04/21 03/04/21 18:50 18:55 19:00 Pulse Rate 86 88 88 Blood Pressure O2 Sat by Pulse 97 98 97 Oximetry O2 Sat by Pulse Oximetry [ Bilateral] 03/04/21 03/04/21 03/04/21 19:05 19:10 19:15 Pulse Rate 84 86 89 Blood Pressure 131/73 O2 Sat by Pulse 98 93 97 Oximetry O2 Sat by Pulse Oximetry [ Bilateral] 03/04/21 03/04/21 03/04/21 19:20 19:25 19:30 Pulse Rate 86 83 85 Blood Pressure O2 Sat by Pulse 97 98 97 Oximetry O2 Sat by Pulse 98 Oximetry [ Bilateral] 03/04/21 03/04/21 03/04/21 19:35 19:40 19:45 Pulse Rate 85 88 90 Blood Pressure O2 Sat by Pulse 98 99 97 Oximetry O2 Sat by Pulse Oximetry [ Bilateral] 03/04/21 03/04/21 03/04/21 19:50 19:55 20:00 Pulse Rate 93 H 93 H 83 Blood Pressure O2 Sat by Pulse 97 96 97 Oximetry O2 Sat by Pulse Oximetry [ Bilateral] 03/04/21 03/04/21 03/04/21 20:05 20:10 20:15 Pulse Rate 90 86 88 Blood Pressure 141/82 O2 Sat by Pulse 97 99 98 Oximetry O2 Sat by Pulse Oximetry [ Bilateral] 03/04/21 03/04/21 03/04/21 20:20 20:25 20:30 Pulse Rate 87 89 87 Blood Pressure O2 Sat by Pulse 98 97 96 Oximetry O2 Sat by Pulse Oximetry [ Bilateral] 03/04/21 03/04/21 03/04/21 20:35 20:40 20:45 Pulse Rate 90 94 H 87 Blood Pressure O2 Sat by Pulse 96 97 96 Oximetry O2 Sat by Pulse Oximetry [ Bilateral] 03/04/21 03/04/21 03/04/21 20:50 20:55 20:59 Pulse Rate 89 98 H 86 Blood Pressure O2 Sat by Pulse 96 97 94 Oximetry O2 Sat by Pulse Oximetry [ Bilateral] 03/04/21 03/04/21 03/04/21 21:00 21:05 21:09 Pulse Rate 88 93 H 90 Blood Pressure 154/81 O2 Sat by Pulse 96 97 90 Oximetry O2 Sat by Pulse Oximetry [ Bilateral] 03/04/21 03/04/21 03/04/21 21:10 21:15 21:20 Pulse Rate 89 88 90 Blood Pressure O2 Sat by Pulse 97 98 96 Oximetry O2 Sat by Pulse Oximetry [ Bilateral] 03/04/21 03/04/21 03/04/21 21:25 21:30 21:32 Pulse Rate 90 90 85 Blood Pressure 160/93 O2 Sat by Pulse 97 98 91 Oximetry O2 Sat by Pulse Oximetry [ Bilateral] 03/04/21 03/04/21 03/04/21 21:33 21:35 21:40 Pulse Rate 93 H 100 H Blood Pressure 160/93 O2 Sat by Pulse 98 99 Oximetry O2 Sat by Pulse Oximetry [ Bilateral] 03/04/21 03/04/21 03/04/21 21:45 21:50 21:55 Pulse Rate 88 88 88 Blood Pressure O2 Sat by Pulse 98 96 97 Oximetry O2 Sat by Pulse Oximetry [ Bilateral] 03/04/21 03/04/21 03/04/21 22:00 22:05 22:10 Pulse Rate 85 85 85 Blood Pressure O2 Sat by Pulse 99 98 98 Oximetry O2 Sat by Pulse Oximetry [ Bilateral] 03/04/21 03/04/21 03/04/21 22:15 22:20 22:25 Pulse Rate 90 90 83 Blood Pressure O2 Sat by Pulse 98 97 97 Oximetry O2 Sat by Pulse Oximetry [ Bilateral] 03/04/21 03/04/21 03/04/21 22:30 22:32 22:35 Pulse Rate 85 89 88 Blood Pressure 129/75 O2 Sat by Pulse 96 89 98 Oximetry O2 Sat by Pulse Oximetry [ Bilateral] 03/04/21 03/04/21 03/04/21 22:40 22:45 22:50 Pulse Rate 85 86 82 Blood Pressure O2 Sat by Pulse 97 95 96 Oximetry O2 Sat by Pulse Oximetry [ Bilateral] 03/04/21 03/04/21 03/04/21 22:55 23:00 23:05 Pulse Rate 87 85 85 Blood Pressure O2 Sat by Pulse 97 96 96 Oximetry O2 Sat by Pulse Oximetry [ Bilateral] 03/04/21 03/04/21 03/04/21 23:10 23:15 23:20 Pulse Rate 87 85 82 Blood Pressure O2 Sat by Pulse 98 98 98 Oximetry O2 Sat by Pulse Oximetry [ Bilateral] 03/04/21 03/04/21 03/04/21 23:25 23:30 23:34 Pulse Rate 87 84 88 Blood Pressure 124/68 O2 Sat by Pulse 97 97 93 Oximetry O2 Sat by Pulse Oximetry [ Bilateral] 03/04/21 03/04/21 03/04/21 23:35 23:40 23:45 Pulse Rate 86 79 37 L Blood Pressure O2 Sat by Pulse 97 97 97 Oximetry O2 Sat by Pulse Oximetry [ Bilateral] 03/04/21 03/04/21 03/05/21 23:50 23:55 00:00 Pulse Rate 98 H 91 H 91 H Blood Pressure O2 Sat by Pulse 98 97 97 Oximetry O2 Sat by Pulse Oximetry [ Bilateral] 03/05/21 03/05/21 03/05/21 00:05 00:09 00:11 Pulse Rate 90 84 89 Blood Pressure O2 Sat by Pulse 97 86 99 Oximetry O2 Sat by Pulse Oximetry [ Bilateral] 03/05/21 03/05/21 03/05/21 00:17 00:22 00:27 Pulse Rate 75 81 83 Blood Pressure O2 Sat by Pulse 96 98 98 Oximetry O2 Sat by Pulse Oximetry [ Bilateral] 03/05/21 03/05/21 03/05/21 00:32 00:33 00:37 Pulse Rate 90 85 92 H Blood Pressure 142/65 O2 Sat by Pulse 97 97 Oximetry O2 Sat by Pulse Oximetry [ Bilateral] 03/05/21 03/05/21 03/05/21 00:42 00:47 00:52 Pulse Rate 88 86 82 Blood Pressure O2 Sat by Pulse 99 98 98 Oximetry O2 Sat by Pulse Oximetry [ Bilateral] 03/05/21 03/05/21 03/05/21 00:57 01:02 01:07 Pulse Rate 87 82 91 H Blood Pressure O2 Sat by Pulse 97 98 99 Oximetry O2 Sat by Pulse Oximetry [ Bilateral] 03/05/21 03/05/21 03/05/21 01:12 01:17 01:22 Pulse Rate 91 H 88 81 Blood Pressure O2 Sat by Pulse 98 97 99 Oximetry O2 Sat by Pulse Oximetry [ Bilateral] 03/05/21 03/05/21 03/05/21 01:27 01:32 01:33 Pulse Rate 92 H 95 H 92 H Blood Pressure 161/76 O2 Sat by Pulse 98 96 91 Oximetry O2 Sat by Pulse Oximetry [ Bilateral] 03/05/21 03/05/21 03/05/21 01:37 01:42 01:47 Pulse Rate 86 85 88 Blood Pressure O2 Sat by Pulse 97 99 99 Oximetry O2 Sat by Pulse Oximetry [ Bilateral] 03/05/21 03/05/21 03/05/21 01:52 01:57 02:02 Pulse Rate 96 H 88 87 Blood Pressure 197/104 O2 Sat by Pulse 91 96 98 Oximetry O2 Sat by Pulse Oximetry [ Bilateral] 03/05/21 03/05/21 03/05/21 02:07 02:10 02:12 Pulse Rate 82 90 84 Blood Pressure O2 Sat by Pulse 97 94 96 Oximetry O2 Sat by Pulse Oximetry [ Bilateral] 03/05/21 03/05/21 03/05/21 02:13 02:17 02:22 Pulse Rate 90 85 91 H Blood Pressure 197/104 O2 Sat by Pulse 98 98 Oximetry O2 Sat by Pulse Oximetry [ Bilateral] 03/05/21 03/05/21 03/05/21 02:27 02:28 02:32 Pulse Rate 91 H 94 H 92 H Blood Pressure 144/78 O2 Sat by Pulse 98 86 98 Oximetry O2 Sat by Pulse Oximetry [ Bilateral] 03/05/21 03/05/21 03/05/21 02:33 02:37 02:42 Pulse Rate 89 94 H 94 H Blood Pressure 142/79 O2 Sat by Pulse 98 98 Oximetry O2 Sat by Pulse Oximetry [ Bilateral] 03/05/21 03/05/21 03/05/21 02:47 02:52 02:57 Pulse Rate 91 H 98 H 96 H Blood Pressure O2 Sat by Pulse 97 98 98 Oximetry O2 Sat by Pulse Oximetry [ Bilateral] 03/05/21 03/05/21 03/05/21 03:02 03:07 03:12 Pulse Rate 92 H 92 H 94 H Blood Pressure O2 Sat by Pulse 98 96 97 Oximetry O2 Sat by Pulse Oximetry [ Bilateral] 03/05/21 03/05/21 03/05/21 03:17 03:20 03:22 Pulse Rate 92 H 93 H 89 Blood Pressure O2 Sat by Pulse 98 94 95 Oximetry O2 Sat by Pulse Oximetry [ Bilateral] 03/05/21 03/05/21 03/05/21 03:27 03:32 03:33 Pulse Rate 92 H 97 H 93 H Blood Pressure 135/76 O2 Sat by Pulse 97 97 86 Oximetry O2 Sat by Pulse Oximetry [ Bilateral] 03/05/21 03/05/21 03/05/21 03:37 03:40 03:42 Pulse Rate 88 89 88 Blood Pressure O2 Sat by Pulse 96 93 96 Oximetry O2 Sat by Pulse Oximetry [ Bilateral] 03/05/21 03/05/21 03/05/21 03:47 03:52 03:57 Pulse Rate 92 H 90 90 Blood Pressure O2 Sat by Pulse 99 98 97 Oximetry O2 Sat by Pulse Oximetry [ Bilateral] 03/05/21 03/05/21 03/05/21 04:02 04:07 04:12 Pulse Rate 90 92 H 94 H Blood Pressure O2 Sat by Pulse 99 98 95 Oximetry O2 Sat by Pulse Oximetry [ Bilateral] 03/05/21 03/05/21 03/05/21 04:17 04:22 04:27 Pulse Rate 93 H 95 H 89 Blood Pressure O2 Sat by Pulse 97 97 99 Oximetry O2 Sat by Pulse Oximetry [ Bilateral] 03/05/21 03/05/21 03/05/21 04:31 04:32 04:34 Pulse Rate 96 H 97 H 86 Blood Pressure 132/72 100/52 O2 Sat by Pulse 94 96 Oximetry O2 Sat by Pulse Oximetry [ Bilateral] 03/05/21 03/05/21 03/05/21 04:37 04:42 04:43 Pulse Rate 85 85 61 Blood Pressure 104/51 O2 Sat by Pulse 91 97 94 Oximetry O2 Sat by Pulse Oximetry [ Bilateral] 03/05/21 03/05/21 03/05/21 04:44 04:46 04:47 Pulse Rate 89 83 85 Blood Pressure 107/55 94/50 O2 Sat by Pulse 97 Oximetry O2 Sat by Pulse Oximetry [ Bilateral] 03/05/21 03/05/21 03/05/21 04:49 04:52 04:57 Pulse Rate 81 74 82 Blood Pressure 95/50 81/45 O2 Sat by Pulse 88 97 Oximetry O2 Sat by Pulse Oximetry [ Bilateral] 03/05/21 03/05/21 03/05/21 04:58 05:00 05:01 Pulse Rate 86 91 H 91 H Blood Pressure 98/54 101/58 O2 Sat by Pulse 93 Oximetry O2 Sat by Pulse Oximetry [ Bilateral] 03/05/21 03/05/21 03/05/21 05:02 05:04 05:06 Pulse Rate 87 83 85 Blood Pressure 88/55 87/50 O2 Sat by Pulse 94 Oximetry O2 Sat by Pulse Oximetry [ Bilateral] 03/05/21 03/05/21 03/05/21 05:07 05:10 05:12 Pulse Rate 78 82 85 Blood Pressure 89/52 89/50 O2 Sat by Pulse 99 99 Oximetry O2 Sat by Pulse Oximetry [ Bilateral] 03/05/21 03/05/21 03/05/21 05:13 05:16 05:17 Pulse Rate 82 84 83 Blood Pressure 87/48 89/52 O2 Sat by Pulse 99 Oximetry O2 Sat by Pulse Oximetry [ Bilateral] 03/05/21 03/05/21 03/05/21 05:19 05:22 05:25 Pulse Rate 89 86 86 Blood Pressure 98/58 98/54 103/59 O2 Sat by Pulse 92 99 Oximetry O2 Sat by Pulse Oximetry [ Bilateral] 03/05/21 03/05/21 03/05/21 05:27 05:28 05:32 Pulse Rate 88 88 92 H Blood Pressure 100/53 O2 Sat by Pulse 98 99 Oximetry O2 Sat by Pulse Oximetry [ Bilateral] - Exam Narrative Exam: Called by RN d/t patient's blood pressures in the 80's/50's with late decelerations noted on the monitor. Upon entering room a deceleration had just occurred. Blood pressure was 80's/50's. Pitocin and magnesium was turned off. Pt was repositioned in bed. Dr. Stock made aware. Breasts: deferred Cardiovascular: Regular rate Lungs: Normal air movement Abdomen: Present: normal appearance Vulva: both: normal Uterus: Present: normal FHR: category 2 (Late decels with minimal variability noted after epidural placement. ) Uterine Contraction Monitor Mode: External Cervical Dilatation: 4 Cervical Effacement Percentage: 70 station: -3 Uterine Contraction Pattern: Regular Uterine Tone Measurement Phase: Resting Uterine Contraction Intensity: Moderate - Labs Labs: Abnormal Labs 03/03/21 03/04/21 03/04/21 23:30 00:00 00:00 WBC 11.4 H Carbon Dioxide 20 L Magnesium Albumin 3.3 L Urine WBC (Auto) 13.0 H Urine Creatinine Urine Total Protein 03/04/21 03/04/21 03/04/21 13:58 19:53 Unknown WBC Carbon Dioxide Magnesium 4.30 H 4.70 H Albumin Urine WBC (Auto) Urine Creatinine 131.8 H Urine Total Protein 263 H 03/05/21 03/05/21 02:11 03:21 WBC 11.9 H Carbon Dioxide Magnesium 4.50 H Albumin Urine WBC (Auto) Urine Creatinine Urine Total Protein Laboratory Results - last 24 hr 03/04/21 03/04/21 03/05/21 13:58 19:53 02:00 WBC RBC Hgb Hct MCV MCH MCHC RDW Plt Count Magnesium 4.30 H 4.70 H Membranes Rupture Negative 03/05/21 03/05/21 02:11 03:21 WBC 11.9 H RBC 4.07 Hgb 12.3 Hct 36.1 MCV 89 MCH 30 MCHC 34 RDW 14.6 Plt Count 404 Magnesium 4.50 H Membranes Rupture
--- NOTE | 2021-03-05 06:10 | Progress Note ---
Assessment and Plan - Patient Problems (1) 36 weeks gestation of Current Visit: Yes Status: Acute (2) Preeclampsia Current Visit: Yes Status: Acute Qualifiers: Trimester: third trimester Qualified Code(s): O14.93 - Unspecified pre- eclampsia, third trimester Plan to address problem: -improvement of tracing with correction of the bp -will con't iol at this time. Will hold pitocin for now as pt valery spontaneously -will cont to hold the magnesium also as bps are low to normal range -anticipate Subjective - Subjective Date of service: 03/05/21 Principal diagnosis: IUP @ 36.4 wks IOL for Severe Pre-E Interval history: Called by wireworker supervisor due to response to maternal hypotension. Variable corrected with correction of bp. AROM done with clear fluid noted and IUPC and ISE placed w/o difficulty. Pt gave verbal consent for placement of both devices. She expressed no questions at this time. Patient reports: movement normal, contractions Objective - Vital Signs Vital Signs: Vital Signs - 12hr 03/04/21 03/04/21 03/04/21 18:10 18:11 18:15 Pulse Rate 90 88 89 Blood Pressure 131/59 O2 Sat by Pulse 93 98 Oximetry O2 Sat by Pulse Oximetry [ Bilateral] 03/04/21 03/04/21 03/04/21 18:20 18:25 18:30 Pulse Rate 88 87 84 Blood Pressure O2 Sat by Pulse 99 98 98 Oximetry O2 Sat by Pulse Oximetry [ Bilateral] 03/04/21 03/04/21 03/04/21 18:35 18:40 18:45 Pulse Rate 84 87 86 Blood Pressure O2 Sat by Pulse 97 98 98 Oximetry O2 Sat by Pulse Oximetry [ Bilateral] 03/04/21 03/04/21 03/04/21 18:50 18:55 19:00 Pulse Rate 86 88 88 Blood Pressure O2 Sat by Pulse 97 98 97 Oximetry O2 Sat by Pulse Oximetry [ Bilateral] 03/04/21 03/04/21 03/04/21 19:05 19:10 19:15 Pulse Rate 84 86 89 Blood Pressure 131/73 O2 Sat by Pulse 98 93 97 Oximetry O2 Sat by Pulse Oximetry [ Bilateral] 03/04/21 03/04/21 03/04/21 19:20 19:25 19:30 Pulse Rate 86 83 85 Blood Pressure O2 Sat by Pulse 97 98 97 Oximetry O2 Sat by Pulse 98 Oximetry [ Bilateral] 03/04/21 03/04/21 03/04/21 19:35 19:40 19:45 Pulse Rate 85 88 90 Blood Pressure O2 Sat by Pulse 98 99 97 Oximetry O2 Sat by Pulse Oximetry [ Bilateral] 03/04/21 03/04/21 03/04/21 19:50 19:55 20:00 Pulse Rate 93 H 93 H 83 Blood Pressure O2 Sat by Pulse 97 96 97 Oximetry O2 Sat by Pulse Oximetry [ Bilateral] 03/04/21 03/04/21 03/04/21 20:05 20:10 20:15 Pulse Rate 90 86 88 Blood Pressure 141/82 O2 Sat by Pulse 97 99 98 Oximetry O2 Sat by Pulse Oximetry [ Bilateral] 03/04/21 03/04/21 03/04/21 20:20 20:25 20:30 Pulse Rate 87 89 87 Blood Pressure O2 Sat by Pulse 98 97 96 Oximetry O2 Sat by Pulse Oximetry [ Bilateral] 03/04/21 03/04/21 03/04/21 20:35 20:40 20:45 Pulse Rate 90 94 H 87 Blood Pressure O2 Sat by Pulse 96 97 96 Oximetry O2 Sat by Pulse Oximetry [ Bilateral] 03/04/21 03/04/21 03/04/21 20:50 20:55 20:59 Pulse Rate 89 98 H 86 Blood Pressure O2 Sat by Pulse 96 97 94 Oximetry O2 Sat by Pulse Oximetry [ Bilateral] 03/04/21 03/04/21 03/04/21 21:00 21:05 21:09 Pulse Rate 88 93 H 90 Blood Pressure 154/81 O2 Sat by Pulse 96 97 90 Oximetry O2 Sat by Pulse Oximetry [ Bilateral] 03/04/21 03/04/21 03/04/21 21:10 21:15 21:20 Pulse Rate 89 88 90 Blood Pressure O2 Sat by Pulse 97 98 96 Oximetry O2 Sat by Pulse Oximetry [ Bilateral] 03/04/21 03/04/21 03/04/21 21:25 21:30 21:32 Pulse Rate 90 90 85 Blood Pressure 160/93 O2 Sat by Pulse 97 98 91 Oximetry O2 Sat by Pulse Oximetry [ Bilateral] 03/04/21 03/04/21 03/04/21 21:33 21:35 21:40 Pulse Rate 93 H 100 H Blood Pressure 160/93 O2 Sat by Pulse 98 99 Oximetry O2 Sat by Pulse Oximetry [ Bilateral] 03/04/21 03/04/21 03/04/21 21:45 21:50 21:55 Pulse Rate 88 88 88 Blood Pressure O2 Sat by Pulse 98 96 97 Oximetry O2 Sat by Pulse Oximetry [ Bilateral] 03/04/21 03/04/21 03/04/21 22:00 22:05 22:10 Pulse Rate 85 85 85 Blood Pressure O2 Sat by Pulse 99 98 98 Oximetry O2 Sat by Pulse Oximetry [ Bilateral] 03/04/21 03/04/21 03/04/21 22:15 22:20 22:25 Pulse Rate 90 90 83 Blood Pressure O2 Sat by Pulse 98 97 97 Oximetry O2 Sat by Pulse Oximetry [ Bilateral] 03/04/21 03/04/21 03/04/21 22:30 22:32 22:35 Pulse Rate 85 89 88 Blood Pressure 129/75 O2 Sat by Pulse 96 89 98 Oximetry O2 Sat by Pulse Oximetry [ Bilateral] 03/04/21 03/04/21 03/04/21 22:40 22:45 22:50 Pulse Rate 85 86 82 Blood Pressure O2 Sat by Pulse 97 95 96 Oximetry O2 Sat by Pulse Oximetry [ Bilateral] 03/04/21 03/04/21 03/04/21 22:55 23:00 23:05 Pulse Rate 87 85 85 Blood Pressure O2 Sat by Pulse 97 96 96 Oximetry O2 Sat by Pulse Oximetry [ Bilateral] 03/04/21 03/04/21 03/04/21 23:10 23:15 23:20 Pulse Rate 87 85 82 Blood Pressure O2 Sat by Pulse 98 98 98 Oximetry O2 Sat by Pulse Oximetry [ Bilateral] 03/04/21 03/04/21 03/04/21 23:25 23:30 23:34 Pulse Rate 87 84 88 Blood Pressure 124/68 O2 Sat by Pulse 97 97 93 Oximetry O2 Sat by Pulse Oximetry [ Bilateral] 03/04/21 03/04/21 03/04/21 23:35 23:40 23:45 Pulse Rate 86 79 37 L Blood Pressure O2 Sat by Pulse 97 97 97 Oximetry O2 Sat by Pulse Oximetry [ Bilateral] 03/04/21 03/04/21 03/05/21 23:50 23:55 00:00 Pulse Rate 98 H 91 H 91 H Blood Pressure O2 Sat by Pulse 98 97 97 Oximetry O2 Sat by Pulse Oximetry [ Bilateral] 03/05/21 03/05/21 03/05/21 00:05 00:09 00:11 Pulse Rate 90 84 89 Blood Pressure O2 Sat by Pulse 97 86 99 Oximetry O2 Sat by Pulse Oximetry [ Bilateral] 03/05/21 03/05/21 03/05/21 00:17 00:22 00:27 Pulse Rate 75 81 83 Blood Pressure O2 Sat by Pulse 96 98 98 Oximetry O2 Sat by Pulse Oximetry [ Bilateral] 03/05/21 03/05/21 03/05/21 00:32 00:33 00:37 Pulse Rate 90 85 92 H Blood Pressure 142/65 O2 Sat by Pulse 97 97 Oximetry O2 Sat by Pulse Oximetry [ Bilateral] 03/05/21 03/05/21 03/05/21 00:42 00:47 00:52 Pulse Rate 88 86 82 Blood Pressure O2 Sat by Pulse 99 98 98 Oximetry O2 Sat by Pulse Oximetry [ Bilateral] 03/05/21 03/05/21 03/05/21 00:57 01:02 01:07 Pulse Rate 87 82 91 H Blood Pressure O2 Sat by Pulse 97 98 99 Oximetry O2 Sat by Pulse Oximetry [ Bilateral] 03/05/21 03/05/21 03/05/21 01:12 01:17 01:22 Pulse Rate 91 H 88 81 Blood Pressure O2 Sat by Pulse 98 97 99 Oximetry O2 Sat by Pulse Oximetry [ Bilateral] 03/05/21 03/05/21 03/05/21 01:27 01:32 01:33 Pulse Rate 92 H 95 H 92 H Blood Pressure 161/76 O2 Sat by Pulse 98 96 91 Oximetry O2 Sat by Pulse Oximetry [ Bilateral] 03/05/21 03/05/21 03/05/21 01:37 01:42 01:47 Pulse Rate 86 85 88 Blood Pressure O2 Sat by Pulse 97 99 99 Oximetry O2 Sat by Pulse Oximetry [ Bilateral] 03/05/21 03/05/21 03/05/21 01:52 01:57 02:02 Pulse Rate 96 H 88 87 Blood Pressure 197/104 O2 Sat by Pulse 91 96 98 Oximetry O2 Sat by Pulse Oximetry [ Bilateral] 03/05/21 03/05/21 03/05/21 02:07 02:10 02:12 Pulse Rate 82 90 84 Blood Pressure O2 Sat by Pulse 97 94 96 Oximetry O2 Sat by Pulse Oximetry [ Bilateral] 03/05/21 03/05/21 03/05/21 02:13 02:17 02:22 Pulse Rate 90 85 91 H Blood Pressure 197/104 O2 Sat by Pulse 98 98 Oximetry O2 Sat by Pulse Oximetry [ Bilateral] 03/05/21 03/05/21 03/05/21 02:27 02:28 02:32 Pulse Rate 91 H 94 H 92 H Blood Pressure 144/78 O2 Sat by Pulse 98 86 98 Oximetry O2 Sat by Pulse Oximetry [ Bilateral] 03/05/21 03/05/21 03/05/21 02:33 02:37 02:42 Pulse Rate 89 94 H 94 H Blood Pressure 142/79 O2 Sat by Pulse 98 98 Oximetry O2 Sat by Pulse Oximetry [ Bilateral] 03/05/21 03/05/21 03/05/21 02:47 02:52 02:57 Pulse Rate 91 H 98 H 96 H Blood Pressure O2 Sat by Pulse 97 98 98 Oximetry O2 Sat by Pulse Oximetry [ Bilateral] 03/05/21 03/05/21 03/05/21 03:02 03:07 03:12 Pulse Rate 92 H 92 H 94 H Blood Pressure O2 Sat by Pulse 98 96 97 Oximetry O2 Sat by Pulse Oximetry [ Bilateral] 03/05/21 03/05/21 03/05/21 03:17 03:20 03:22 Pulse Rate 92 H 93 H 89 Blood Pressure O2 Sat by Pulse 98 94 95 Oximetry O2 Sat by Pulse Oximetry [ Bilateral] 03/05/21 03/05/21 03/05/21 03:27 03:32 03:33 Pulse Rate 92 H 97 H 93 H Blood Pressure 135/76 O2 Sat by Pulse 97 97 86 Oximetry O2 Sat by Pulse Oximetry [ Bilateral] 03/05/21 03/05/21 03/05/21 03:37 03:40 03:42 Pulse Rate 88 89 88 Blood Pressure O2 Sat by Pulse 96 93 96 Oximetry O2 Sat by Pulse Oximetry [ Bilateral] 03/05/21 03/05/21 03/05/21 03:47 03:52 03:57 Pulse Rate 92 H 90 90 Blood Pressure O2 Sat by Pulse 99 98 97 Oximetry O2 Sat by Pulse Oximetry [ Bilateral] 03/05/21 03/05/21 03/05/21 04:02 04:07 04:12 Pulse Rate 90 92 H 94 H Blood Pressure O2 Sat by Pulse 99 98 95 Oximetry O2 Sat by Pulse Oximetry [ Bilateral] 03/05/21 03/05/21 03/05/21 04:17 04:22 04:27 Pulse Rate 93 H 95 H 89 Blood Pressure O2 Sat by Pulse 97 97 99 Oximetry O2 Sat by Pulse Oximetry [ Bilateral] 03/05/21 03/05/21 03/05/21 04:31 04:32 04:34 Pulse Rate 96 H 97 H 86 Blood Pressure 132/72 100/52 O2 Sat by Pulse 94 96 Oximetry O2 Sat by Pulse Oximetry [ Bilateral] 03/05/21 03/05/21 03/05/21 04:37 04:42 04:43 Pulse Rate 85 85 61 Blood Pressure 104/51 O2 Sat by Pulse 91 97 94 Oximetry O2 Sat by Pulse Oximetry [ Bilateral] 03/05/21 03/05/21 03/05/21 04:44 04:46 04:47 Pulse Rate 89 83 85 Blood Pressure 107/55 94/50 O2 Sat by Pulse 97 Oximetry O2 Sat by Pulse Oximetry [ Bilateral] 03/05/21 03/05/21 03/05/21 04:49 04:52 04:57 Pulse Rate 81 74 82 Blood Pressure 95/50 81/45 O2 Sat by Pulse 88 97 Oximetry O2 Sat by Pulse Oximetry [ Bilateral] 03/05/21 03/05/21 03/05/21 04:58 05:00 05:01 Pulse Rate 86 91 H 91 H Blood Pressure 98/54 101/58 O2 Sat by Pulse 93 Oximetry O2 Sat by Pulse Oximetry [ Bilateral] 03/05/21 03/05/21 03/05/21 05:02 05:04 05:06 Pulse Rate 87 83 85 Blood Pressure 88/55 87/50 O2 Sat by Pulse 94 Oximetry O2 Sat by Pulse Oximetry [ Bilateral] 03/05/21 03/05/21 03/05/21 05:07 05:10 05:12 Pulse Rate 78 82 85 Blood Pressure 89/52 89/50 O2 Sat by Pulse 99 99 Oximetry O2 Sat by Pulse Oximetry [ Bilateral] 03/05/21 03/05/21 03/05/21 05:13 05:16 05:17 Pulse Rate 82 84 83 Blood Pressure 87/48 89/52 O2 Sat by Pulse 99 Oximetry O2 Sat by Pulse Oximetry [ Bilateral] 03/05/21 03/05/21 03/05/21 05:19 05:22 05:25 Pulse Rate 89 86 86 Blood Pressure 98/58 98/54 103/59 O2 Sat by Pulse 92 99 Oximetry O2 Sat by Pulse Oximetry [ Bilateral] 03/05/21 03/05/21 03/05/21 05:27 05:28 05:32 Pulse Rate 88 88 92 H Blood Pressure 100/53 O2 Sat by Pulse 98 99 Oximetry O2 Sat by Pulse Oximetry [ Bilateral] 03/05/21 03/05/21 03/05/21 05:37 05:41 05:42 Pulse Rate 92 H 96 H 96 H Blood Pressure 115/59 O2 Sat by Pulse 96 0 L 97 Oximetry O2 Sat by Pulse Oximetry [ Bilateral] 03/05/21 03/05/21 03/05/21 05:47 05:52 05:53 Pulse Rate 93 H 94 H 90 Blood Pressure O2 Sat by Pulse 97 97 93 Oximetry O2 Sat by Pulse Oximetry [ Bilateral] 03/05/21 03/05/21 05:57 06:02 Pulse Rate 90 92 H Blood Pressure 111/55 O2 Sat by Pulse 97 97 Oximetry O2 Sat by Pulse Oximetry [ Bilateral] - Exam FHR: category 2 (decreased variability) Cervical Dilatation: 4.5 Cervical Effacement Percentage: 70 station: -2 Uterine Contraction Pattern: Regular Uterine Tone Measurement Phase: Resting Uterine Contraction Intensity: Moderate Extremities: normal, edema (trace edema) Deep Tendon Reflex Grade: Normal +2 - Labs Labs: Abnormal Labs 03/03/21 03/04/21 03/04/21 23:30 00:00 00:00 WBC 11.4 H Carbon Dioxide 20 L Magnesium Albumin 3.3 L Urine WBC (Auto) 13.0 H Urine Creatinine Urine Total Protein 03/04/21 03/04/21 03/04/21 13:58 19:53 Unknown WBC Carbon Dioxide Magnesium 4.30 H 4.70 H Albumin Urine WBC (Auto) Urine Creatinine 131.8 H Urine Total Protein 263 H 03/05/21 03/05/21 02:11 03:21 WBC 11.9 H Carbon Dioxide Magnesium 4.50 H Albumin Urine WBC (Auto) Urine Creatinine Urine Total Protein Laboratory Results - last 24 hr 03/04/21 03/04/21 03/05/21 13:58 19:53 02:00 WBC RBC Hgb Hct MCV MCH MCHC RDW Plt Count Magnesium 4.30 H 4.70 H Membranes Rupture Negative 03/05/21 03/05/21 02:11 03:21 WBC 11.9 H RBC 4.07 Hgb 12.3 Hct 36.1 MCV 89 MCH 30 MCHC 34 RDW 14.6 Plt Count 404 Magnesium 4.50 H Membranes Rupture
--- NOTE | 2021-03-05 07:51 | Progress Note ---
Assessment and Plan pt resting, no complaints. epidural providing satisfactory relief. SVE now 7/100/-2 with good decent during ctx. rn given instruction to turn patient often from RLP to LLP with peanut ball or stirrup to help facilitate labor. Pt denies LITTLE, visual changes or epigastric pain. Anticipate - Patient Problems (1) 36 weeks gestation of Current Visit: Yes Status: Acute (2) Preeclampsia Current Visit: Yes Status: Acute Qualifiers: Trimester: third trimester Qualified Code(s): O14.93 - Unspecified pre- eclampsia, third trimester Subjective - Subjective Date of service: 03/05/21 Principal diagnosis: IUP @ 36.4 wks IOL for Severe Pre-E Patient reports: no new complaints (comfortable with epidural) Objective - Vital Signs Vital Signs: Vital Signs - 12hr 03/04/21 03/04/21 03/04/21 19:50 19:55 20:00 Pulse Rate 93 H 93 H 83 Blood Pressure O2 Sat by Pulse 97 96 97 Oximetry 03/04/21 03/04/21 03/04/21 20:05 20:10 20:15 Pulse Rate 90 86 88 Blood Pressure 141/82 O2 Sat by Pulse 97 99 98 Oximetry 03/04/21 03/04/21 03/04/21 20:20 20:25 20:30 Pulse Rate 87 89 87 Blood Pressure O2 Sat by Pulse 98 97 96 Oximetry 03/04/21 03/04/21 03/04/21 20:35 20:40 20:45 Pulse Rate 90 94 H 87 Blood Pressure O2 Sat by Pulse 96 97 96 Oximetry 03/04/21 03/04/21 03/04/21 20:50 20:55 20:59 Pulse Rate 89 98 H 86 Blood Pressure O2 Sat by Pulse 96 97 94 Oximetry 03/04/21 03/04/21 03/04/21 21:00 21:05 21:09 Pulse Rate 88 93 H 90 Blood Pressure 154/81 O2 Sat by Pulse 96 97 90 Oximetry 03/04/21 03/04/21 03/04/21 21:10 21:15 21:20 Pulse Rate 89 88 90 Blood Pressure O2 Sat by Pulse 97 98 96 Oximetry 03/04/21 03/04/21 03/04/21 21:25 21:30 21:32 Pulse Rate 90 90 85 Blood Pressure 160/93 O2 Sat by Pulse 97 98 91 Oximetry 03/04/21 03/04/21 03/04/21 21:33 21:35 21:40 Pulse Rate 93 H 100 H Blood Pressure 160/93 O2 Sat by Pulse 98 99 Oximetry 03/04/21 03/04/21 03/04/21 21:45 21:50 21:55 Pulse Rate 88 88 88 Blood Pressure O2 Sat by Pulse 98 96 97 Oximetry 03/04/21 03/04/21 03/04/21 22:00 22:05 22:10 Pulse Rate 85 85 85 Blood Pressure O2 Sat by Pulse 99 98 98 Oximetry 03/04/21 03/04/21 03/04/21 22:15 22:20 22:25 Pulse Rate 90 90 83 Blood Pressure O2 Sat by Pulse 98 97 97 Oximetry 03/04/21 03/04/21 03/04/21 22:30 22:32 22:35 Pulse Rate 85 89 88 Blood Pressure 129/75 O2 Sat by Pulse 96 89 98 Oximetry 03/04/21 03/04/21 03/04/21 22:40 22:45 22:50 Pulse Rate 85 86 82 Blood Pressure O2 Sat by Pulse 97 95 96 Oximetry 03/04/21 03/04/21 03/04/21 22:55 23:00 23:05 Pulse Rate 87 85 85 Blood Pressure O2 Sat by Pulse 97 96 96 Oximetry 03/04/21 03/04/21 03/04/21 23:10 23:15 23:20 Pulse Rate 87 85 82 Blood Pressure O2 Sat by Pulse 98 98 98 Oximetry 03/04/21 03/04/21 03/04/21 23:25 23:30 23:34 Pulse Rate 87 84 88 Blood Pressure 124/68 O2 Sat by Pulse 97 97 93 Oximetry 03/04/21 03/04/21 03/04/21 23:35 23:40 23:45 Pulse Rate 86 79 37 L Blood Pressure O2 Sat by Pulse 97 97 97 Oximetry 03/04/21 03/04/21 03/05/21 23:50 23:55 00:00 Pulse Rate 98 H 91 H 91 H Blood Pressure O2 Sat by Pulse 98 97 97 Oximetry 03/05/21 03/05/21 03/05/21 00:05 00:09 00:11 Pulse Rate 90 84 89 Blood Pressure O2 Sat by Pulse 97 86 99 Oximetry 03/05/21 03/05/21 03/05/21 00:17 00:22 00:27 Pulse Rate 75 81 83 Blood Pressure O2 Sat by Pulse 96 98 98 Oximetry 03/05/21 03/05/21 03/05/21 00:32 00:33 00:37 Pulse Rate 90 85 92 H Blood Pressure 142/65 O2 Sat by Pulse 97 97 Oximetry 03/05/21 03/05/21 03/05/21 00:42 00:47 00:52 Pulse Rate 88 86 82 Blood Pressure O2 Sat by Pulse 99 98 98 Oximetry 03/05/21 03/05/21 03/05/21 00:57 01:02 01:07 Pulse Rate 87 82 91 H Blood Pressure O2 Sat by Pulse 97 98 99 Oximetry 03/05/21 03/05/21 03/05/21 01:12 01:17 01:22 Pulse Rate 91 H 88 81 Blood Pressure O2 Sat by Pulse 98 97 99 Oximetry 03/05/21 03/05/21 03/05/21 01:27 01:32 01:33 Pulse Rate 92 H 95 H 92 H Blood Pressure 161/76 O2 Sat by Pulse 98 96 91 Oximetry 03/05/21 03/05/21 03/05/21 01:37 01:42 01:47 Pulse Rate 86 85 88 Blood Pressure O2 Sat by Pulse 97 99 99 Oximetry 03/05/21 03/05/21 03/05/21 01:52 01:57 02:02 Pulse Rate 96 H 88 87 Blood Pressure 197/104 O2 Sat by Pulse 91 96 98 Oximetry 03/05/21 03/05/21 03/05/21 02:07 02:10 02:12 Pulse Rate 82 90 84 Blood Pressure O2 Sat by Pulse 97 94 96 Oximetry 03/05/21 03/05/21 03/05/21 02:13 02:17 02:22 Pulse Rate 90 85 91 H Blood Pressure 197/104 O2 Sat by Pulse 98 98 Oximetry 03/05/21 03/05/21 03/05/21 02:27 02:28 02:32 Pulse Rate 91 H 94 H 92 H Blood Pressure 144/78 O2 Sat by Pulse 98 86 98 Oximetry 03/05/21 03/05/21 03/05/21 02:33 02:37 02:42 Pulse Rate 89 94 H 94 H Blood Pressure 142/79 O2 Sat by Pulse 98 98 Oximetry 03/05/21 03/05/21 03/05/21 02:47 02:52 02:57 Pulse Rate 91 H 98 H 96 H Blood Pressure O2 Sat by Pulse 97 98 98 Oximetry 03/05/21 03/05/21 03/05/21 03:02 03:07 03:12 Pulse Rate 92 H 92 H 94 H Blood Pressure O2 Sat by Pulse 98 96 97 Oximetry 03/05/21 03/05/21 03/05/21 03:17 03:20 03:22 Pulse Rate 92 H 93 H 89 Blood Pressure O2 Sat by Pulse 98 94 95 Oximetry 03/05/21 03/05/21 03/05/21 03:27 03:32 03:33 Pulse Rate 92 H 97 H 93 H Blood Pressure 135/76 O2 Sat by Pulse 97 97 86 Oximetry 03/05/21 03/05/21 03/05/21 03:37 03:40 03:42 Pulse Rate 88 89 88 Blood Pressure O2 Sat by Pulse 96 93 96 Oximetry 03/05/21 03/05/21 03/05/21 03:47 03:52 03:57 Pulse Rate 92 H 90 90 Blood Pressure O2 Sat by Pulse 99 98 97 Oximetry 03/05/21 03/05/21 03/05/21 04:02 04:07 04:12 Pulse Rate 90 92 H 94 H Blood Pressure O2 Sat by Pulse 99 98 95 Oximetry 03/05/21 03/05/21 03/05/21 04:17 04:22 04:27 Pulse Rate 93 H 95 H 89 Blood Pressure O2 Sat by Pulse 97 97 99 Oximetry 03/05/21 03/05/21 03/05/21 04:31 04:32 04:34 Pulse Rate 96 H 97 H 86 Blood Pressure 132/72 100/52 O2 Sat by Pulse 94 96 Oximetry 03/05/21 03/05/21 03/05/21 04:37 04:42 04:43 Pulse Rate 85 85 61 Blood Pressure 104/51 O2 Sat by Pulse 91 97 94 Oximetry 03/05/21 03/05/21 03/05/21 04:44 04:46 04:47 Pulse Rate 89 83 85 Blood Pressure 107/55 94/50 O2 Sat by Pulse 97 Oximetry 03/05/21 03/05/21 03/05/21 04:49 04:52 04:57 Pulse Rate 81 74 82 Blood Pressure 95/50 81/45 O2 Sat by Pulse 88 97 Oximetry 03/05/21 03/05/21 03/05/21 04:58 05:00 05:01 Pulse Rate 86 91 H 91 H Blood Pressure 98/54 101/58 O2 Sat by Pulse 93 Oximetry 03/05/21 03/05/21 03/05/21 05:02 05:04 05:06 Pulse Rate 87 83 85 Blood Pressure 88/55 87/50 O2 Sat by Pulse 94 Oximetry 03/05/21 03/05/21 03/05/21 05:07 05:10 05:12 Pulse Rate 78 82 85 Blood Pressure 89/52 89/50 O2 Sat by Pulse 99 99 Oximetry 03/05/21 03/05/21 03/05/21 05:13 05:16 05:17 Pulse Rate 82 84 83 Blood Pressure 87/48 89/52 O2 Sat by Pulse 99 Oximetry 03/05/21 03/05/21 03/05/21 05:19 05:22 05:25 Pulse Rate 89 86 86 Blood Pressure 98/58 98/54 103/59 O2 Sat by Pulse 92 99 Oximetry 03/05/21 03/05/21 03/05/21 05:27 05:28 05:32 Pulse Rate 88 88 92 H Blood Pressure 100/53 O2 Sat by Pulse 98 99 Oximetry 03/05/21 03/05/21 03/05/21 05:37 05:41 05:42 Pulse Rate 92 H 96 H 96 H Blood Pressure 115/59 O2 Sat by Pulse 96 0 L 97 Oximetry 03/05/21 03/05/21 03/05/21 05:47 05:52 05:53 Pulse Rate 93 H 94 H 90 Blood Pressure O2 Sat by Pulse 97 97 93 Oximetry 03/05/21 03/05/21 03/05/21 05:57 06:02 06:07 Pulse Rate 90 92 H 86 Blood Pressure 111/55 O2 Sat by Pulse 97 97 96 Oximetry 03/05/21 03/05/21 03/05/21 06:12 06:17 06:22 Pulse Rate 87 90 89 Blood Pressure 103/59 O2 Sat by Pulse 92 97 96 Oximetry 03/05/21 03/05/21 03/05/21 06:27 06:32 06:37 Pulse Rate 88 89 87 Blood Pressure 112/57 O2 Sat by Pulse 93 98 98 Oximetry 03/05/21 03/05/21 03/05/21 06:42 06:47 06:52 Pulse Rate 92 H 81 82 Blood Pressure 120/63 O2 Sat by Pulse 99 98 96 Oximetry 03/05/21 03/05/21 03/05/21 06:57 07:02 07:07 Pulse Rate 88 86 91 H Blood Pressure 143/66 O2 Sat by Pulse 99 97 98 Oximetry 03/05/21 03/05/21 03/05/21 07:12 07:17 07:22 Pulse Rate 90 90 89 Blood Pressure 126/59 O2 Sat by Pulse 93 96 98 Oximetry 03/05/21 03/05/21 03/05/21 07:27 07:32 07:37 Pulse Rate 89 86 88 Blood Pressure O2 Sat by Pulse 98 99 99 Oximetry 03/05/21 03/05/21 07:42 07:43 Pulse Rate 84 86 Blood Pressure 127/75 O2 Sat by Pulse 99 Oximetry - Exam Cardiovascular: Regular rate Lungs: Clear to auscultation, Normal air movement Abdomen: Present: normal appearance, soft Vulva: both: normal Uterus: Present: normal FHR: category 2 Uterine Contraction Monitor Mode: Internal Cervical Dilatation: 7 Cervical Effacement Percentage: 100 station: -2 Uterine Contraction Frequency (min): 2-4 Uterine Contraction Duration: 60 Uterine Contraction Pattern: Regular Uterine Tone Measurement Phase: Contraction Uterine Contraction Intensity: Moderate Extremities: normal Deep Tendon Reflex Grade: Normal +2 - Labs Labs: Abnormal Labs 03/03/21 03/04/21 03/04/21 23:30 00:00 00:00 WBC 11.4 H Carbon Dioxide 20 L Magnesium Albumin 3.3 L Urine WBC (Auto) 13.0 H Urine Creatinine Urine Total Protein 03/04/21 03/04/21 03/04/21 13:58 19:53 Unknown WBC Carbon Dioxide Magnesium 4.30 H 4.70 H Albumin Urine WBC (Auto) Urine Creatinine 131.8 H Urine Total Protein 263 H 03/05/21 03/05/21 02:11 03:21 WBC 11.9 H Carbon Dioxide Magnesium 4.50 H Albumin Urine WBC (Auto) Urine Creatinine Urine Total Protein Laboratory Results - last 24 hr 03/04/21 03/04/21 03/05/21 13:58 19:53 02:00 WBC RBC Hgb Hct MCV MCH MCHC RDW Plt Count Magnesium 4.30 H 4.70 H Membranes Rupture Negative 03/05/21 03/05/21 02:11 03:21 WBC 11.9 H RBC 4.07 Hgb 12.3 Hct 36.1 MCV 89 MCH 30 MCHC 34 RDW 14.6 Plt Count 404 Magnesium 4.50 H Membranes Rupture
--- NOTE | 2021-03-05 10:08 | Procedure Note ---
OB Delivery Note - Delivery Date of Delivery: 03/05/21 [employer] Girdler: LIVAN JAY ([facility] ) Estimated blood loss: 200cc - Vaginal Delivery presentation: vertex Delivery position: OA (ADELA) Intrapartum events: none Delivery induction: cervidil Delivery augmentation: rupture of membranes, pitocin Delivery monitor: internal FHT, internal uterine Route of delivery: Delivery placenta: spontaneous Delivery cord: nuchal cord, 3 umbilical vessels Episiotomy: none Delivery laceration: none Anesthesia: epidural Delivery comments: Female Infant Birthed over intact perinuem and onto maternal abd. Head, body, and shoulders delivered in one push. Cord clamped and cut after cessation of pulsation. Placenta birthed, intact w/ 3 vessel cord. 6#8 w/ 9/9 APGARS. Pt to remain on labor and delivery for Mag infusion. Mom and baby LDR stable. - Infant A at 1 minute: 9 at 5 minutes: 9 Gender: Female (Marifer)
[2021-03-05] MEDS: FAMOTIDINE 20 MG TAB PO SCH ×2 (11:56→22:07)
[2021-03-05] MEDS: IBUPROFEN 600 MG TAB PO SCH ×2 (11:56→17:55)
[2021-03-05] MEDS ORDERED: LANOLIN/ZINC/DIMETHICONE (LANSINOH) 7 GM TP PRN (12:00)
[2021-03-05] MEDS ORDERED: ACETAMINOPHEN 325 MG TAB PO PRN (12:00)
[2021-03-05] MEDS ORDERED: WITCH HAZEL/ GLYCERIN PAD TP PRN (12:00)
[2021-03-05] MEDS ORDERED: ONDANSETRON 4 MG/2 ML INJ IV PRN (12:00)
[2021-03-05] MEDS ORDERED: diphenhydrAMINE 25 MG CAP PO PRN (12:00)
[2021-03-05] MEDS ORDERED: PROMETHAZINE 25 MG RECT SUPP PR PRN (12:00)
[2021-03-05] MEDS ORDERED: PROMETHAZINE 25 MG TAB PO PRN (12:00)
[2021-03-05] MEDS ORDERED: MAGNESIUM HYDROXIDE (MOM) ORAL LIQD UDC PO PRN (22:00)
[2021-03-05] MEDS ORDERED: LACTATED RINGERS 1,000 ML ONE (22:11)
[2021-03-05] MEDS ORDERED: LACTATED RINGERS 1,000 ML IV SCH (22:15)
[2021-03-06 01:09] LABS: Hematocrit 33.4 % (30.3-42.9); Hemoglobin 11.4 gm/dl (10.1-14.3)
[2021-03-06] MEDS: PRENATAL VIT27-FE FUMARATE-FOLIC ACID VIT TAB PO SCH (10:04)
[2021-03-06] MEDS: FAMOTIDINE 20 MG TAB PO SCH ×2 (10:05→22:19)
--- NOTE | 2021-03-06 11:07 | Post Anesthesia Evaluation ---
- Post Anesthesia Evaluation Patient Participated: Yes Airway Patent: Yes Stable Respiratory Function: Yes Nausea/Vomiting: No Temp > 96.8F: Yes Pain Manageable: Yes Adequeate Hydration: Yes Anesthesia Complications: No Block Receding Appropriately: Yes
--- NOTE | 2021-03-06 13:01 | Progress Note ---
Assessment and Plan A: 35 y.o. s/p , s/p magnesium infusion d/t pre eclampsia. P: Continue with care. Continue with Labetalol BID. Anticipate discharge home on 03/07/21 if blood pressures are in the normal range. Subjective - Subjective Principal diagnosis: IUP @ 36.4 wks IOL for Severe Pre-E Patient reports: appetite normal, voiding normally, pain well controlled, flatus [place]: doing well Objective - Vital Signs Latest vital signs: Vital Signs Temp Pulse Resp BP BP Pulse Ox Pulse Ox 03/06/21 12:03 98.2 F 85 18 140/91 98 03/06/21 11:40 98 03/06/21 10:04 140/84 03/06/21 10:03 33 L 86 03/06/21 09:59 93 H 99 03/06/21 09:55 92 H 140/84 93 03/06/21 09:54 94 H 98 03/06/21 09:49 87 96 03/06/21 09:44 85 97 03/06/21 09:39 87 98 03/06/21 09:35 68 94 03/06/21 09:34 89 93 03/06/21 09:29 90 92 03/06/21 09:25 101 H 153/81 03/06/21 09:24 81 94 03/06/21 09:23 82 93 03/06/21 09:19 82 96 03/06/21 09:18 87 94 03/06/21 09:14 86 98 03/06/21 09:09 88 98 03/06/21 09:04 86 99 03/06/21 08:59 88 98 03/06/21 08:55 83 137/84 92 03/06/21 08:54 87 96 03/06/21 08:49 85 97 03/06/21 08:45 98 H 92 03/06/21 08:44 90 97 03/06/21 08:39 84 97 03/06/21 08:34 91 H 97 03/06/21 08:29 82 98 03/06/21 08:25 86 130/74 94 03/06/21 08:24 86 97 03/06/21 08:19 86 98 03/06/21 08:14 83 99 03/06/21 08:09 84 97 03/06/21 08:04 83 97 03/06/21 08:00 99 03/06/21 07:59 97.9 F 86 16 140/70 140/70 98 03/06/21 07:58 63 93 03/06/21 07:54 84 99 03/06/21 07:49 88 98 03/06/21 07:43 80 99 03/06/21 07:38 85 99 03/06/21 07:33 84 100 03/06/21 07:28 78 98 03/06/21 07:23 82 98 03/06/21 07:18 83 98 03/06/21 07:13 87 99 03/06/21 07:08 88 99 03/06/21 07:03 89 98 03/06/21 06:58 88 99 03/06/21 06:55 85 139/86 03/06/21 06:53 86 98 03/06/21 06:48 91 H 97 03/06/21 06:43 82 91 03/06/21 06:38 77 85 03/06/21 06:33 87 95 03/06/21 06:32 87 94 03/06/21 06:28 77 92 03/06/21 06:27 85 93 03/06/21 06:25 85 138/75 03/06/21 06:23 78 97 03/06/21 06:22 79 89 03/06/21 06:18 89 94 03/06/21 06:16 88 94 03/06/21 06:13 87 94 03/06/21 06:08 83 97 03/06/21 06:06 87 93 03/06/21 06:03 89 94 03/06/21 06:00 88 93 03/06/21 05:58 86 94 03/06/21 05:55 87 120/63 92 03/06/21 05:53 85 95 03/06/21 05:50 86 94 03/06/21 05:48 85 95 03/06/21 05:45 86 94 03/06/21 05:43 87 94 03/06/21 05:38 87 94 03/06/21 05:33 87 94 03/06/21 05:28 86 96 03/06/21 05:25 84 132/69 92 03/06/21 05:23 92 H 98 03/06/21 05:18 87 95 03/06/21 05:15 83 90 03/06/21 05:13 89 95 03/06/21 05:09 82 94 03/06/21 05:08 81 94 03/06/21 05:04 90 94 03/06/21 05:03 87 95 03/06/21 04:58 85 95 03/06/21 04:55 82 120/60 94 03/06/21 04:53 88 95 03/06/21 04:48 86 95 03/06/21 04:43 87 95 03/06/21 04:38 86 95 03/06/21 04:33 86 96 03/06/21 04:28 88 97 03/06/21 04:25 84 122/69 94 03/06/21 04:23 94 H 96 03/06/21 04:18 83 95 03/06/21 04:13 83 96 03/06/21 04:08 84 95 03/06/21 04:03 84 95 03/06/21 03:58 86 95 03/06/21 03:55 82 129/63 92 03/06/21 03:53 84 95 03/06/21 03:48 91 H 96 03/06/21 03:44 93 H 94 03/06/21 03:43 88 94 03/06/21 03:38 85 93 03/06/21 03:33 86 94 03/06/21 03:31 88 94 03/06/21 03:28 90 94 03/06/21 03:25 83 114/55 93 03/06/21 03:23 84 97 03/06/21 03:18 86 96 03/06/21 03:13 94 H 97 03/06/21 03:08 85 96 03/06/21 03:03 86 96 03/06/21 02:58 86 96 03/06/21 02:55 86 121/66 94 03/06/21 02:53 83 96 03/06/21 02:48 85 95 03/06/21 02:46 86 94 03/06/21 02:43 85 95 03/06/21 02:38 83 95 03/06/21 02:33 89 96 03/06/21 02:28 86 97 03/06/21 02:25 89 119/62 93 03/06/21 02:23 100 H 98 03/06/21 02:18 92 H 98 03/06/21 02:13 100 H 99 03/06/21 02:08 92 H 99 03/06/21 02:03 85 99 03/06/21 01:58 91 H 98 03/06/21 01:55 87 142/65 03/06/21 01:53 95 H 97 03/06/21 01:48 92 H 98 03/06/21 01:43 90 98 03/06/21 01:38 92 H 96 03/06/21 01:32 87 97 03/06/21 01:27 86 96 03/06/21 01:25 84 124/62 94 03/06/21 01:22 94 H 98 03/06/21 01:17 90 100 03/06/21 01:12 92 H 98 03/06/21 01:07 87 98 03/06/21 01:02 92 H 99 03/06/21 00:57 89 97 03/06/21 00:52 86 97 03/06/21 00:47 86 97 03/06/21 00:42 91 H 98 03/06/21 00:37 89 98 03/06/21 00:32 92 H 98 03/06/21 00:27 94 H 97 03/06/21 00:22 95 H 97 03/06/21 00:17 94 H 99 03/06/21 00:12 98 H 98 03/06/21 00:11 77 92 03/05/21 23:48 94 H 97 03/05/21 23:47 96 H 94 03/05/21 23:43 90 98 03/05/21 23:41 84 93 03/05/21 23:38 92 H 96 03/05/21 23:33 85 96 03/05/21 23:28 102 H 82 L 03/05/21 23:25 88 134/79 91 03/05/21 23:23 92 H 98 03/05/21 23:18 94 H 95 03/05/21 23:13 92 H 99 03/05/21 23:08 87 97 03/05/21 23:03 95 H 98 03/05/21 22:58 93 H 97 03/05/21 22:55 89 135/89 03/05/21 22:53 89 98 03/05/21 22:48 89 99 03/05/21 22:43 83 97 03/05/21 22:38 90 97 03/05/21 22:33 92 H 96 03/05/21 22:28 90 98 03/05/21 22:25 94 H 172/85 03/05/21 22:23 93 H 99 03/05/21 22:18 88 99 03/05/21 22:13 87 99 03/05/21 22:08 93 H 139/85 99 03/05/21 22:03 89 98 03/05/21 21:58 89 99 03/05/21 21:55 86 139/85 03/05/21 21:53 85 98 03/05/21 21:48 90 99 03/05/21 21:43 89 99 03/05/21 21:38 84 98 03/05/21 21:33 89 99 03/05/21 21:28 84 99 03/05/21 21:25 86 140/90 03/05/21 21:23 88 98 03/05/21 21:18 87 99 03/05/21 21:13 80 97 03/05/21 21:08 89 96 03/05/21 21:04 83 145/85 03/05/21 21:03 84 99 03/05/21 20:58 87 96 03/05/21 20:55 86 173/93 93 03/05/21 20:53 85 98 03/05/21 20:50 83 92 03/05/21 20:48 85 96 03/05/21 20:43 88 98 03/05/21 20:38 87 97 03/05/21 20:33 89 98 03/05/21 20:28 93 H 96 03/05/21 20:25 100 H 144/91 03/05/21 20:23 100 H 96 03/05/21 20:18 88 96 03/05/21 20:13 82 98 03/05/21 20:08 84 96 03/05/21 20:03 87 96 03/05/21 19:58 89 98 03/05/21 19:55 95 H 153/88 85 03/05/21 19:53 99 H 97 03/05/21 19:48 89 93 03/05/21 19:47 89 93 03/05/21 19:43 87 97 03/05/21 19:42 99 03/05/21 19:40 97.8 F 86 18 136/91 97 03/05/21 19:38 88 97 03/05/21 19:36 76 94 03/05/21 19:33 89 96 03/05/21 19:28 90 96 03/05/21 19:25 88 136/91 03/05/21 19:23 92 H 98 03/05/21 19:18 88 95 03/05/21 19:13 89 97 03/05/21 19:08 91 H 97 03/05/21 19:03 89 98 03/05/21 18:58 85 97 03/05/21 18:55 86 136/84 91 03/05/21 18:53 83 98 03/05/21 18:48 86 99 03/05/21 18:43 84 98 03/05/21 18:38 85 98 03/05/21 18:33 91 H 97 03/05/21 18:32 89 93 03/05/21 18:28 98 03/05/21 18:26 87 154/96 91 03/05/21 18:23 86 98 03/05/21 18:18 87 97 03/05/21 18:13 88 94 03/05/21 18:08 85 95 03/05/21 18:07 88 94 03/05/21 18:03 97.4 F L 90 18 148/83 96 03/05/21 18:02 87 148/83 03/05/21 18:01 92 H 94 03/05/21 17:58 89 96 03/05/21 17:55 93 H 144/85 03/05/21 17:54 92 H 94 03/05/21 17:52 88 99 03/05/21 17:47 89 97 03/05/21 17:45 88 94 03/05/21 17:42 84 94 03/05/21 17:39 88 94 03/05/21 17:37 88 95 03/05/21 17:32 83 94 03/05/21 17:27 89 93 03/05/21 17:25 85 148/82 94 03/05/21 17:22 85 94 03/05/21 17:17 87 94 03/05/21 17:12 85 94 03/05/21 17:07 81 94 03/05/21 17:05 86 94 03/05/21 17:02 90 94 03/05/21 16:58 92 H 94 03/05/21 16:57 87 95 03/05/21 16:56 87 153/91 03/05/21 16:52 93 H 94 03/05/21 16:47 87 95 03/05/21 16:46 87 93 03/05/21 16:42 82 96 03/05/21 16:40 91 H 93 03/05/21 16:37 91 H 96 03/05/21 16:32 86 95 03/05/21 16:27 82 96 03/05/21 16:25 83 149/83 89 03/05/21 16:22 84 97 03/05/21 16:17 76 97 03/05/21 16:12 82 98 03/05/21 16:07 81 97 03/05/21 16:02 80 97 03/05/21 15:59 81 144/89 03/05/21 15:57 98.1 F 83 16 144/89 96 03/05/21 15:55 86 130/83 94 03/05/21 15:52 82 96 03/05/21 15:47 84 98 03/05/21 15:42 83 97 03/05/21 15:37 81 97 03/05/21 15:32 81 97 03/05/21 15:27 81 96 03/05/21 15:25 79 159/87 90 03/05/21 15:22 82 97 03/05/21 15:17 83 98 03/05/21 15:12 83 96 03/05/21 15:08 83 94 03/05/21 15:07 83 97 03/05/21 15:02 85 94 03/05/21 14:57 88 97 03/05/21 14:55 84 141/84 93 03/05/21 14:52 82 96 03/05/21 14:47 85 94 03/05/21 14:42 83 96 03/05/21 14:37 85 95 03/05/21 14:33 81 94 03/05/21 14:32 84 95 03/05/21 14:27 85 95 03/05/21 14:25 83 132/79 03/05/21 14:22 86 94 03/05/21 14:17 84 95 03/05/21 14:12 83 97 03/05/21 14:07 84 95 03/05/21 14:02 88 95 03/05/21 13:57 86 96 10/05/21 13:56 84 94 03/05/21 13:55 83 122/75 03/05/21 13:52 83 94 03/05/21 13:50 83 94 03/05/21 13:47 83 95 03/05/21 13:43 82 94 03/05/21 13:42 82 95 03/05/21 13:37 84 95 03/05/21 13:32 81 96 03/05/21 13:27 86 97 03/05/21 13:25 82 128/78 03/05/21 13:22 83 97 03/05/21 13:17 79 96 03/05/21 13:12 81 95 03/05/21 13:07 82 95 03/05/21 13:02 79 96 Intake and Output 03/05/21 03/06/21 03/06/21 22:59 06:59 14:59 Output Total 3195 888 [id number] Balance -1000 -600 -1100 Output: Urine 1455 894 [id number] Indwelling Catheter 1468 943 1190 Other: Total, Output Amount 300 600 250 - Exam Narrative Exam: Pt denies LITTLE, blurred vision, spots before her eyes, chest pain, shortness of b reath, and upper abdominal pain. We discussed should any of these symptoms occur, she will need to let the RN know immediately. Breasts: Present: deferred Cardiovascular: Present: Regular rate Lungs: Present: Clear to auscultation Abdomen: Present: normal appearance, soft Vulva: both: normal Uterus: Present: normal, firm Extremities: Present: normal - Labs Labs: Abnormal lab results 03/05/21 03/05/21 03/06/21 Range/Units 12:32 18:29 00:54 Magnesium 4.20 H 3.90 H 3.60 H (1.7-2.3) mg/dL 03/06/21 Range/Units 07:04 Magnesium 3.30 H (1.7-2.3) mg/dL
[2021-03-06] MEDS: IBUPROFEN 600 MG TAB PO SCH ×2 (15:25→22:18)
[2021-03-07] MEDS: IBUPROFEN 600 MG TAB PO SCH ×2 (00:09→04:19)
--- NOTE | 2021-03-07 08:53 | Discharge Summary ---
Providers - Providers Date of Admission: 03/04/21 14:41 Date of discharge: 03/07/21 Attending physician: SYL RIVERA MD Primary care physician: SYL RIVERA MD Hospitalization Reason for admission: IOL d/t to Pre-E Condition: Good Pertinent studies: H&H 11.4/33.4 Procedures: Hospital course: Uncomplicated labor and delivery and pp course Disposition: 01 HOME / SELF CARE / HOMELESS Final Discharge Diagnosis (Prints w/discharge instructions): Time spent for discharge: 15 - Discharge Diagnoses (1) Preeclampsia Status: Acute Qualifiers: Trimester: third trimester Qualified Code(s): O14.93 - Unspecified pre- eclampsia, third trimester (2) (normal spontaneous vaginal delivery) Status: Acute Core Measure Documentation - Palliative Care Palliative Care/ Comfort Measures: Not Applicable - Core Measures Any of the following diagnoses?: none Exam - Constitutional Vitals: Temp Pulse Resp BP Pulse Ox 98.5 F 89 18 128/70 97 03/07/21 07:40 03/07/21 07:40 03/07/21 07:40 03/07/21 07:40 03/07/21 07:40 General appearance: Present: no acute distress, well-nourished - EENT Eyes: Present: PERRL ENT: hearing intact, clear oral mucosa - Respiratory Respiratory effort: normal - Extremities Extremities: pulses symmetrical, No edema - Abdominal General gastrointestinal: Present: soft, non-tender - Integumentary Integumentary: Present: clear, warm, dry - Additional findings Additional findings: Lochia scant, fundus firm Plan Activity: no restrictions Diet: regular Follow up with: SYL RIVERA MD [Primary Care Provider] - 7 Days (Congratulations! Please call [phone] to schedule your B/P check in 1 week and your follow-up. Call for any questions or concerns.) Prescriptions: labetaloL [Labetalol 200mg TAB] 200 mg PO BID #60 tablet Ibuprofen [Motrin 800 MG tab] 800 mg PO Q8HR PRN #30 tablet PRN Reason: Pain
[2021-03-07] MEDS: FAMOTIDINE 20 MG TAB PO SCH (10:14)
[2021-03-07] MEDS: PRENATAL VIT27-FE FUMARATE-FOLIC ACID VIT TAB PO SCH (10:14)
[2021-03-07 17:10] VITALS: BP 135/83
== END 2021-03-07 17:15 | disposition home or self-care (01) | DRG 807 ==
LOC: TRG 21:43 → APU 22:39 → TRG 22:39 → LD 03-04 00:38 → APU 03-04 00:38 → TRG 03-04 08:49 → LD 03-04 08:53 → OBSVTOIN 03-04 14:41 → OB 03-06 11:22
PROVIDERS: ADMIT Student in an Organized Health Care Education/Training Program; ATTEND Student in an Organized Health Care Education/Training Program
PROC: 10E0XZZ Delivery of Products of Conception, External Approach (ICD-10-PCS; principal; 2021-03-05)
PROC: 3E0P7VZ Introduction of Hormone into Female Reproductive, Via Natural or Artificial Opening (ICD-10-PCS; 2021-03-05)
PROC: 3E0R3BZ Introduction of Anesthetic Agent into Spinal Canal, Percutaneous Approach (ICD-10-PCS; 2021-03-05)
PROC: 00HU33Z Insertion of Infusion Device into Spinal Canal, Percutaneous Approach (ICD-10-PCS; 2021-03-05)
DX: O69.81X0 Labor and delivery complicated by cord around neck, without compression, not applicable or unspecified (principal); Z37.0 Single live birth; O14.94 Unspecified pre-eclampsia, complicating childbirth; Z3A.36 36 weeks gestation of pregnancy; Z91.040 Latex allergy status; Z91.010 Allergy to peanuts; Z91.013 Allergy to seafood; Z20.822 Contact with and (suspected) exposure to COVID-19
CPT/HCPCS: 36415; 59025; 59200; 76815; 80048; 80076; 81001; 82570; 83735; 84112; 84156; 84550; 85014; 85018; 85027; 86592; 86850; 86900; 86901; 87086; 88307; 99211; G0378; G0463; J0290; J0360; J2590; J3475; J7120; U0003

== ENCOUNTER 2021-03-08 10:11 | Inpatient (IN) | payer OTHER, MEDICAID ==
[2021-03-08] MEDS ORDERED: hydrALAZINE 20 MG/1 ML INJ IV SCH (11:00)
--- NOTE | 2021-03-08 11:00 | Emergency Department Report ---
HPI - General Chief Complaint: High BP Time Seen by Provider: 03/08/21 10:43 - HPI HPI: Room 41 The patient is a 35-year-old female present with a chief complaint of shortness of breath. Patient is 3 days after spontaneous vaginal delivery 1 . Patient was preeclamptic at the time of delivery. Patient states she was discharged from the hospital yesterday and last night she developed some shortness of breath. Patient states the symptoms continued this morning and when she called her [facility] [employer] [employer] she was instructed to come to the emergency department for evaluation. In the ED the patient was found to be hypertensive at 197/121. Patient denies pleurisy or fever but admits to an occasional cough since yesterday. Patient has not received any Covid vaccinations. The patient states her baby is breast and bottle fed. ED Past Medical Hx - Past Medical History Previous Medical History?: Yes Additional medical history: Preeclampsia - Surgical History Past Surgical History?: No - Family History Family history: no significant - Social History Smoking Status: Former Smoker Substance Use Type: None (Denies illicit drug use), Alcohol (Occasional) - Medications Home Medications: Home Medications Medication Instructions Recorded Confirmed Last Taken Type Famotidine [Acid-Pep] 1 tab PO DAILY 03/05/21 03/05/21 03/03/21 08:00 History Ibuprofen [Motrin 800 MG tab] 800 mg PO Q8HR PRN #30 tablet 03/07/21 Unknown Rx labetaloL [Labetalol 200mg TAB] 200 mg PO BID #60 tablet 03/07/21 Unknown Rx ED Review of Systems ROS: Stated complaint: TROUBLE BREATHING Other details as noted in HPI Constitutional: no symptoms reported Eyes: denies: eye pain ENT: denies: throat pain Respiratory: cough, shortness of breath Cardiovascular: denies: chest pain Endocrine: no symptoms reported Gastrointestinal: denies: vomiting Genitourinary: denies: dysuria Musculoskeletal: denies: back pain Neurological: denies: headache Physical Exam - Physical Exam Vital Signs: Vital Signs 03/08/21 10:16 Temperature 98.8 F Pulse Rate 94 H Respiratory 16 Rate Blood Pressure 197/121 [Left] O2 Sat by Pulse 97 Oximetry Vital Signs 03/08/21 03/08/21 03/08/21 10:16 11:15 11:31 Temperature 98.8 F Pulse Rate 94 H 113 H 111 H Respiratory 16 21 Rate Blood Pressure 182/97 189/126 Blood Pressure 197/121 [Left] O2 Sat by Pulse 97 96 Oximetry 03/08/21 03/08/21 03/08/21 13:00 13:57 14:06 Temperature 98.5 F 98.5 F Pulse Rate 113 H 107 H 103 H Respiratory 19 20 Rate Blood Pressure 166/99 166/99 Blood Pressure 167/103 [Left] O2 Sat by Pulse 97 95 Oximetry 03/08/21 14:10 Temperature Pulse Rate Respiratory Rate Blood Pressure Blood Pressure [Left] O2 Sat by Pulse 96 Oximetry Physical Exam: GENERAL: The patient is well-developed well-nourished female lying on stretcher not appearing to be in acute distress. [] HEENT: Normocephalic. Atraumatic. Extraocular motions are intact. Patient has moist mucous membranes. NECK: Supple. Trachea midline CHEST/LUNGS: Clear to auscultation. There is no respiratory distress noted. HEART/CARDIOVASCULAR: Regular. There is no tachycardia. There is no gallop rub or murmur. ABDOMEN: Abdomen is soft, nontender. Patient has normal bowel sounds. There is no abdominal distention. SKIN: There is no rash. There is no edema. There is no diaphoresis. NEURO: The patient is awake, alert, and oriented. The patient is cooperative. The patient has no focal neurologic deficits. The patient has normal speech MUSCULOSKELETAL: There is no evidence of acute injury. ED Course Vital Signs 03/08/21 10:16 Temperature 98.8 F Pulse Rate 94 H Respiratory 16 Rate Blood Pressure 197/121 [Left] O2 Sat by Pulse 97 Oximetry - Reevaluation(s) Reevaluation #1: 03/08/21 10:59 Patient informed that she needs to pump and dump her breast milk for at least 48 hours after receiving the CT scan today but the contrast is collected in breastmilk. Patient verbalized understanding - Consultations Consultation #1: 03/08/21 13:28 [facility] paged ED Medical Decision Making - Lab Data Result diagrams: 03/08/21 11:18 03/08/21 11:18 Laboratory Tests 03/08/21 03/08/21 03/08/21 11:18 11:18 11:18 WBC 13.0 H RBC 3.89 Hgb 11.7 Hct 34.6 MCV 89 MCH 30 MCHC 34 RDW 14.4 Plt Count 451 H Lymph % (Auto) 8.9 L [place] % (Auto) 8.7 H Eos % (Auto) 2.2 Baso % (Auto) 0.7 Lymph # (Auto) 1.2 [place] # (Auto) 1.1 H Eos # (Auto) 0.3 Baso # (Auto) 0.1 Seg Neutrophils % 79.5 H Seg Neutrophils # 10.3 H Sodium 138 Potassium 3.8 Chloride 104.9 Carbon Dioxide 20 L Anion Gap 17 BUN 4 L Creatinine 0.7 Estimated GFR > 60 BUN/Creatinine Ratio 6 Glucose 82 Calcium 8.8 Total Bilirubin 0.40 AST 62 H ALT 38 Alkaline Phosphatase 107 NT-Pro-B Natriuret Pep 598.9 H Total Protein 6.7 Albumin 3.1 L Albumin/Globulin Ratio 0.9 - Radiology Data Radiology results: report reviewed (CT chest), image reviewed (CT chest) [facility] [address] [id number] Cat Scan Report Signed Patient: ANABEL STARK MR#: [id number] : 1985 Acct:[id number] Age/Sex: 35 / F ADM Date: 03/08/21 Loc: ED Attending Dr: Ordering Physician: MINA PRIETO MD Date of Service: 03/08/21 Procedure(s): CT angio chest Accession Number(s): [id number] cc: MINA PRIETO MD CT angio chest INDICATION / CLINICAL INFORMATION: Shortness of breath, 3 days OMNI 350 100 ML. TECHNIQUE: Axial CT images were obtained through the chest after injection of IV contrast. 3 plane MIP and/or 3D reconstructions were produced. All CT scans at this location are performed using CT dose reduction for ALARA by means of automated exposure control. COMPARISON: None available. FINDINGS: PULMONARY ARTERIES: No pulmonary emboli. HEART: No significant abnormality. MEDIASTINUM / PRIMO: No significant abnormality. LUNGS: Interlobular septal thickening. Moderate quantity of airspace disease with a central predilection. Moderate bilateral pleural effusions. No pleural effusion. No pneumothorax. ADDITIONAL FINDINGS: None. UPPER ABDOMEN: No acute findings. SKELETAL STRUCTURES: No significant osseous abnormality. IMPRESSION: 1. No CT evidence for pulmonary embolism. 2. Airspace disease with imaging features most consistent with alveolar edema and bilateral moderate-sized pleural effusions. Signer Name: Silvestre Merida MD Signed: 03/08/2021 3:05 PM Workstation Name: [id number] Transcribed By: CS Dictated By: Silvestre Merida MD Electronically Authenticated By: Silvestre Merida MD Signed Date/Time: 03/08/21 1505 DD/ 1503 TD/TT: Print Cancel - Differential Diagnosis Preeclampsia Critical care attestation.: If time is entered above; I have spent that time in minutes in the direct care of this critically ill patient, excluding procedure time. ED Disposition Clinical Impression: Preeclampsia, Shortness of breath Disposition: ADMITTED INPATIENT Is pt being admited?: Yes Does the pt Need Aspirin: No Condition: Stable Instructions: Hypertension (ED)
[2021-03-08] MEDS ORDERED: MAGNESIUM SULFATE 4 GM/100 ML BAG IV ONE (11:30)
[2021-03-08 11:35] LABS: Basophils # (Auto) 0.1 K/mm3 (0.0-0.1); Basophils % (Auto) 0.7 % (0.0-1.8); Eosinophils # (Auto) 0.3 K/mm3 (0.0-0.4); Eosinophils % (Auto) 2.2 % (0.0-4.3); Hematocrit 34.6 % (30.3-42.9); Hemoglobin 11.7 gm/dl (10.1-14.3); Lymphocytes # (Auto) 1.2 K/mm3 (1.2-5.4); Lymphocytes % (Auto) 8.9 % (13.4-35.0); Mean Corpuscular HGB Conc 34 % (30-34); Mean Corpuscular Volume 89 fl (79-97); Monocytes # (Auto) 1.1 K/mm3 (0.0-0.8); Monocytes % (Auto) 8.7 % (0.0-7.3); Platelet Count 451 K/mm3 (140-440); Red Blood Count 3.89 M/mm3 (3.65-5.03); Red Cell Distribution Width 14.4 % (13.2-15.2)
[2021-03-08 12:09] LABS: Alanine Aminotransferase 38 units/L (7-56); Albumin 3.1 g/dL (3.9-5); Blood Urea Nitrogen 4 mg/dL (7-17); Calcium 8.8 mg/dL (8.4-10.2); Hemolysis Index 5
[2021-03-08 12:10] LABS: BUN/Creatinine Ratio 6
[2021-03-08] MEDS ORDERED: ACETAMINOPHEN 325 MG TAB PO ONE (13:48)
--- NOTE | 2021-03-08 15:10 | Cat Scan Report ---
CT angio chest INDICATION / CLINICAL INFORMATION: Shortness of breath, 3 days OMNI 350 100 ML. TECHNIQUE: Axial CT images were obtained through the chest after injection of IV contrast. 3 plane MIP and/or 3D reconstructions were produced. All CT scans at this location are performed using CT dose reduction f or ALARA by means of automated exposure control. COMPARISON: None available. FINDINGS: PULMONARY ARTERIES: No pulmonary emboli. HEART: No significant abnormality. MEDIASTINUM / PRIMO: No significant abnormality. LUNGS: Interlobular septal thickening. Moderate quantity of airspace disease with a central predilect ion. Moderate bilateral pleural effusions. No pleural effusion. No pneumothorax. ADDITIONAL FINDINGS: None. UPPER ABDOMEN: No acute findings. SKELETAL STRUCTURES: No significant osseous abnormality. IMPRESSION: 1. No CT evidence for pulmonary embolism. 2. Airspace disease with imaging features most consistent with alveolar edema and bilateral moderate- sized pleural effusions. Signer Name: Silvestre Merida MD Signed: 03/08/2021 3:05 PM Workstation Name: [id number]
[2021-03-08 16:01] LABS: Mucus,Urine FEW /HPF
[2021-03-08] MEDS ORDERED: MAGNESIUM SULFATE 40GM/1000ML 40 GM/1,000 ML BAG IV ONE (16:06)
[2021-03-08] MEDS ORDERED: MAGNESIUM SULFATE 0 GM/0 ML BAG IV ONE (16:07)
--- NOTE | 2021-03-08 17:21 | History and Physical Report ---
History of Present Illness Date of examination: 03/08/21 ( readmission for pre eclampsia) Date of admission: 03/08/21 15:26 Chief complaint: I'm short of breath History of present illness: Pt presented to the ED after calling the office with c/o shortness of breath. She recently was an on 03/05. She was diagnosed with pre eclampsia given a course of magnesium and was sent home in good condition. She states that the shortness of breath started after she was discharged home after a . She thought that she was just tired and short of breath because she just walked up a flight of stairs. This AM the shortness of breath became worse so she called the office and came to the ER. Past History : 5 Term Births: 1 Premature Births: 1 Living Children: 2 Para: 2 Mult. Births: 0 Prev : 0 Prev. attempt? 0 Aborta: 2 Elect. Ab: 0 Spont. Ab: 2 Ectopics: 0 # 1 Delivery date: 2004 Weeks Gestation: 34 labor: yes Delivery type: Anesthesia type: epidural Delivery location: [place] Sex: Male weight: 7-14 Comments: Denies GDM # 2 Delivery date: 2006 Weeks Gestation: 4 Delivery type: SAB Comments: denies any complications # 3 Delivery date: 2006 Weeks Gestation: 36 Delivery type: Anesthesia type: epidural Delivery location: [place] Infant Sex: Male weight: 7-0 # 4 Delivery date: 2019 Weeks Gestation: 10 Delivery type: SAB Comments: Required D&C # 5 03/05/2021, # 36 + wks, on mag infusion d/t pre elcampsia. 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 Infection History Hx of STD: none HIV Risk Eval: no Hepatitis B Risk Eval: low risk Personal hx. of genital herpes: no Partner hx. of genital herpes: no Rash, Viral, or Febrile illness since last LMP? no Varicella/Chicken Pox Status: Unknown TB Risk: no Genetic History ADVANCED MATERNAL AGE Congenital Heart Defect: Mom: no Dad: no Vega Disease: Mom: no Dad: no Thalassemia Mom: no Dad: no Neural Tube Defect Mom: no Dad: no Down's Syndrome Mom: no Dad: no Jeff-Sachs Mom: no Dad: no Sickle Cell Disease/Trait Mom: no Dad: no Hemophilia Mom: no Dad: no Muscular Dystrophy Mom: no Dad: no Cystic Fibrosis Mom: no Dad: no Sam Chorea Mom: no Dad: no Mental Retardation Mom: no Dad: no Fragile X Mom: no Dad: no Other Genetic/Chromosomal Disorder Mom: no Dad: no Child w/other defect Mom: no Dad: no Enviromental Exposures Xray Exposure: no Medication, drug, or alcohol use since LMP: no Chemical/Other Exposure: no Exposure to Cat Liter: no Hx of Parvovirus (Fifth Disease): no Occupational Exposure to Children: none Current Allergies (reviewed today): * POLLEN (Critical) * GRASS (Critical) * DUSTMITES (Critical) * CATS (Critical) * PEANUT BUTTER (Critical) Past History Past Medical History: no pertinent history Past Surgical History: D&C Family/Genetic History: none Social history: no significant social history - Obstetrical History : 5 Para: 3 Hx # Term Pregnancies: 0 Number of Pregnancies: 3 Spontaneous Abortions: 2 Induced : 0 Number of Living Children: 3 Medications and Allergies Allergies Allergy/AdvReac Type Severity Reaction Status Date / Time soy Allergy Intermediate Swelling Verified 03/04/21 04:36 latex Allergy Mild Hives Verified 03/04/21 04:36 peanut Allergy Mild Itching Verified 03/04/21 04:36 shellfish derived Allergy Mild Hives Verified 03/04/21 04:36 Home Medications Medication Instructions Recorded Confirmed Last Taken Type Famotidine [Acid-Pep] 1 tab PO DAILY 03/05/21 03/05/21 03/03/21 08:00 History Ibuprofen [Motrin 800 MG tab] 800 mg PO Q8HR PRN #30 tablet 03/07/21 Unknown Rx labetaloL [Labetalol 200mg TAB] 200 mg PO BID #60 tablet 03/07/21 Unknown Rx Active Meds: Active Medications Labetalol HCl (Labetalol 100 Mg Tab) 300 mg PO BID SANDRA Review of Systems All systems: negative Respiratory: shortness of breath - Vital Signs Vital signs: Vital Signs Temp Pulse Resp BP Pulse Ox 98.8 F 94 H 16 197/121 97 03/08/21 10:16 03/08/21 10:16 03/08/21 10:16 03/08/21 10:16 03/08/21 10:16 Temp Pulse Resp BP Pulse Ox 98.5 F 103 H 20 166/99 96 03/08/21 14:06 03/08/21 14:06 03/08/21 14:06 03/08/21 14:06 03/08/21 14:10 Pt states that she is still short of breath and a LITTLE. She had chest pain while in the ER but now she denies. She also denies blurred vision, spots before her eyes, upper abdominal pain. Consulted with Dr. Stock. Pt will be admitted for pre eclampsia and magnesium infusion. - Physical Exam Breasts: Positive: deferred Cardiovascular: Normal S1, Normal S2 Lungs: Positive: Clear to auscultation, Other (Diminished in the bases. No wheezing noted. ) Abdomen: Positive: normal appearance, soft, normal bowel sounds Genitourinary (Female): Positive: normal external genitalia, normal perenium Vulva: both: normal Uterus: Positive: normal size (Normal for post delivery. ) Extremities: Positive: edema (+1 to +2 edema noted to lower extremities. ) Deep Tendon Reflex Grade: Normal +2 Results Result Diagrams: 03/08/21 11:18 03/08/21 11:18 Abnormal lab results 03/08/21 03/08/21 03/08/21 Range/Units 11:18 11:18 11:18 WBC 13.0 H (4.5-11.0) K/mm3 Plt Count 451 H (140-440) K/mm3 Lymph % (Auto) 8.9 L (13.4-35.0) % [place] % (Auto) 8.7 H (0.0-7.3) % [place] # (Auto) 1.1 H (0.0-0.8) K/mm3 Seg Neutrophils % 79.5 H (40.0-70.0) % Seg Neutrophils # 10.3 H (1.8-7.7) K/mm3 Carbon Dioxide 20 L (22-30) mmol/L BUN 4 L (7-17) mg/dL AST 62 H (5-40) units/L NT-Pro-B Natriuret Pep 598.9 H (0-450) pg/mL Albumin 3.1 L (3.9-5) g/dL All other labs normal. Assessment and Plan A: 35 y.o. s/p PPD # 3. Pre eclampsia. - Patient Problems (1) Shortness of breath Onset Date: ~03/08/21 Current Visit: Yes Status: Acute Plan to address problem: Lasix IV 40 mg ordered X1. 2 View chest x-ray ordered. (2) Pre-eclampsia, Onset Date: ~03/08/21 Current Visit: Yes Status: Acute Plan to address problem: Admit to labor and delivery. Labs drawn in the ER. Magnesium infusion at 1 gm/hr. Labetalol PO 300 mg BID. IV anti-hypertensives for blood pressures 160/100 or greater. Continue to monitor for worsening s/sx of pre elcampsia. Magnesium levels q 6 hr. IV fluid @ a total of only 75 ml/hr.
[2021-03-08 17:27] LABS: Color,Urine STRAW (Yellow)
[2021-03-08 17:28] LABS: Bilirubin,Urine Negative (Negative); Blood,Urine Moderate (Negative)
[2021-03-08] MEDS ORDERED: LACTATED RINGERS 1,000 ML ONE (17:31)
[2021-03-08] MEDS ORDERED: CALCIUM GLUCONATE 1000 MG/10 ML INJ IV ONE (17:39)
[2021-03-08] MEDS ORDERED: FUROSEMIDE 40 MG/4 ML INJ IV ONE (17:42)
[2021-03-08] MEDS ORDERED: hydrALAZINE 20 MG/1 ML INJ ONE (17:44)
[2021-03-08] MEDS ORDERED: LACTATED RINGERS 1,000 ML IV SCH (17:45)
[2021-03-08] MEDS ORDERED: hydrALAZINE 20 MG/1 ML INJ IV ONE (17:51)
[2021-03-08] MEDS ORDERED: MAGNESIUM SULFATE 40GM/1000ML 40 GM/1,000 ML BAG IV SCH (18:00)
--- NOTE | 2021-03-08 18:56 | Event Note ---
Date: 03/08/21 Pt has not had BP meds since d/c home on yesterday. States the rx was not in her discharge paperwork. Review of the chart shows that the rx was generated buy the MW Cyndi Nava on yesterday. Pt currently does c/o headache and request pain meds. Will obtain echo at in the am as well if bps remain unresponsive to meds. At this time pt bps are improving. She is just getting the labetalol po, hydralizine 10 mg iv as well as the lasix that were all ordered earlier today. Pt has only the iv labetalol and the iv hydrazaline 20 mg several hours ago as per RN taking care of the pt at this time. Plan of care d/w pt and all questions were addressed and answered.
[2021-03-08] MEDS: ACETAMINOPHEN 500 MG TAB PO PRN (22:40)
--- NOTE | 2021-03-09 00:50 | XRay Report ---
CHEST 2 VIEWS INDICATION / CLINICAL INFORMATION: shortness of breath; PT JUST GAVE X 2DAYS AND SOB. COMPARISON: None available. FINDINGS: SUPPORT DEVICES: None. HEART / MEDIASTINUM: No significant abnormality. LUNGS / PLEURA: No significant pulmonary or pleural abnormality. No pneumothorax. ADDITIONAL FINDINGS: No significant additional findings. IMPRESSION: 1. No acute findings. Signer Name: Rayshawn Wright MD Signed: 03/09/2021 12:46 AM Workstation Name: [id number]
--- NOTE | 2021-03-09 07:38 | Progress Note ---
Assessment and Plan A: 35 y.o. s/p , PPD #4. Pre elcampsia. P: Continue with magnesium infusion. Continue to monitor for worsening s/sx of pre eclampsia. Continue to closely monitor blood pressures and LITTLE. - Patient Problems (1) Shortness of breath Onset Date: ~03/08/21 Current Visit: Yes Status: Acute (2) Pre-eclampsia, Onset Date: ~03/08/21 Current Visit: Yes Status: Acute Subjective - Subjective Date of service: 03/09/21 (Feeling much better) Principal diagnosis: PPD #4, Re-admission for pre eclampsia Patient reports: pain well controlled : doing well, other (Home) Objective - Vital Signs Latest vital signs: Vital Signs Temp Pulse Resp BP BP Pulse Ox Pulse Ox 03/09/21 07:31 90 97 03/09/21 07:26 87 96 03/09/21 07:22 86 141/81 03/09/21 07:21 87 97 03/09/21 07:16 85 97 03/09/21 07:11 87 97 03/09/21 07:06 87 97 03/09/21 07:01 89 96 03/09/21 06:57 89 130/68 03/09/21 06:56 89 97 03/09/21 06:51 92 H 97 03/09/21 06:46 86 96 03/09/21 06:43 87 94 03/09/21 06:41 90 95 03/09/21 06:36 87 96 03/09/21 06:31 86 96 03/09/21 06:26 85 96 03/09/21 06:22 86 113/57 03/09/21 06:21 85 96 03/09/21 06:16 86 96 03/09/21 06:11 86 96 03/09/21 06:06 86 97 03/09/21 06:01 86 97 03/09/21 05:56 86 97 03/09/21 05:52 84 144/86 03/09/21 05:51 82 98 03/09/21 05:46 86 97 03/09/21 05:41 81 99 03/09/21 05:36 82 98 03/09/21 05:31 78 96 03/09/21 05:26 81 98 03/09/21 05:22 80 144/83 03/09/21 05:21 78 98 03/09/21 05:20 72 94 03/09/21 05:16 83 97 03/09/21 05:11 74 96 03/09/21 05:09 77 94 03/09/21 05:06 86 97 03/09/21 05:03 72 89 03/09/21 05:01 80 97 03/09/21 04:57 85 89 03/09/21 04:56 84 96 03/09/21 04:52 83 125/78 03/09/21 04:51 84 95 03/09/21 04:46 85 95 03/09/21 04:41 85 95 03/09/21 04:36 85 96 03/09/21 04:31 86 96 03/09/21 04:26 84 96 03/09/21 04:22 83 121/65 03/09/21 04:21 84 96 03/09/21 04:16 84 96 03/09/21 04:11 84 97 03/09/21 04:06 81 95 03/09/21 04:01 82 95 03/09/21 03:56 80 96 03/09/21 03:52 78 131/74 03/09/21 03:51 80 97 03/09/21 03:46 76 96 03/09/21 03:45 87 94 03/09/21 03:41 82 97 03/09/21 03:38 87 91 03/09/21 03:36 83 98 03/09/21 03:33 83 94 03/09/21 03:31 84 96 03/09/21 03:26 86 95 03/09/21 03:22 80 125/71 03/09/21 03:21 88 97 03/09/21 03:16 85 97 03/09/21 03:11 83 97 03/09/21 03:06 85 96 03/09/21 03:01 84 97 03/09/21 02:56 84 96 03/09/21 02:52 82 119/69 03/09/21 02:51 83 96 03/09/21 02:46 85 96 03/09/21 02:41 81 97 03/09/21 02:36 85 95 03/09/21 02:31 84 95 03/09/21 02:26 83 96 03/09/21 02:22 81 132/74 03/09/21 02:21 83 97 03/09/21 02:16 90 92 03/09/21 02:14 85 94 03/09/21 02:11 82 95 03/09/21 02:08 86 94 03/09/21 02:06 83 95 03/09/21 02:01 84 95 03/09/21 02:00 84 94 03/09/21 01:56 84 95 03/09/21 01:55 84 94 03/09/21 01:52 85 119/71 03/09/21 01:51 83 94 03/09/21 01:48 84 94 03/09/21 01:46 85 95 03/09/21 01:43 85 94 03/09/21 01:41 83 95 03/09/21 01:36 84 95 03/09/21 01:31 85 95 03/09/21 01:26 85 95 03/09/21 01:22 83 119/69 03/09/21 01:21 84 96 03/09/21 01:16 84 98 03/09/21 01:11 88 99 03/09/21 01:06 82 98 03/09/21 01:01 84 98 03/09/21 00:56 80 99 03/09/21 00:52 81 125/79 03/09/21 00:51 83 99 03/08/21 23:42 90 97 03/08/21 23:37 90 96 03/08/21 23:35 90 122/66 03/08/21 23:32 91 H 96 03/08/21 23:27 91 H 97 03/08/21 23:22 93 H 96 03/08/21 23:17 94 H 96 03/08/21 23:15 92 H 132/73 03/08/21 23:12 98 H 97 03/08/21 23:07 96 H 97 03/08/21 23:02 96 H 97 03/08/21 22:57 97 H 97 03/08/21 22:55 93 H 145/84 03/08/21 22:52 95 H 97 03/08/21 22:47 93 H 98 03/08/21 22:42 100 H 97 03/08/21 22:41 137/77 03/08/21 22:37 95 H 96 03/08/21 22:35 97 H 137/77 03/08/21 22:32 98 H 96 03/08/21 22:27 99 H 96 03/08/21 22:22 97 H 96 03/08/21 22:17 96 H 97 03/08/21 22:15 100 H 141/84 03/08/21 22:12 99 H 97 03/08/21 22:07 99 H 97 03/08/21 22:02 98 H 97 03/08/21 21:57 99 H 96 03/08/21 21:55 101 H 137/81 03/08/21 21:52 96 H 97 03/08/21 21:47 98 H 95 03/08/21 21:42 98 H 96 03/08/21 21:37 96 H 96 03/08/21 21:35 94 H 138/82 03/08/21 21:32 97 H 96 03/08/21 21:27 97 H 96 03/08/21 21:22 96 H 96 03/08/21 21:17 96 H 97 03/08/21 21:15 96 H 139/84 03/08/21 21:12 97 H 96 03/08/21 21:07 97 H 97 03/08/21 21:02 97 H 97 03/08/21 20:57 97 H 97 03/08/21 20:55 97 H 141/80 03/08/21 20:52 102 H 97 03/08/21 20:50 96 H 155/81 03/08/21 20:47 98 H 97 03/08/21 20:43 97 03/08/21 20:42 98 H 97 03/08/21 20:37 99 H 96 03/08/21 20:35 97 H 142/65 03/08/21 20:32 96 H 97 03/08/21 20:27 97 H 97 03/08/21 20:22 99 H 96 03/08/21 20:17 95 H 96 03/08/21 20:15 96 H 132/74 03/08/21 20:12 97 H 97 03/08/21 20:07 97 H 98 03/08/21 20:02 96 H 97 03/08/21 19:57 96 H 97 03/08/21 19:55 96 H 136/75 03/08/21 19:52 95 H 97 03/08/21 19:47 95 H 97 03/08/21 19:42 95 H 98 03/08/21 19:37 96 H 98 03/08/21 19:35 96 H 134/73 03/08/21 19:32 97 H 97 03/08/21 19:27 95 H 98 03/08/21 19:22 97 H 98 03/08/21 19:17 96 H 98 03/08/21 19:16 94 H 135/69 03/08/21 19:15 98.4 F 03/08/21 19:12 95 H 98 03/08/21 19:07 95 H 97 03/08/21 19:02 98 H 97 03/08/21 18:57 93 H 97 03/08/21 18:55 91 H 124/64 03/08/21 18:52 97 H 97 03/08/21 18:47 97 H 97 03/08/21 18:42 100 H 97 03/08/21 18:37 100 H 97 03/08/21 18:35 100 H 140/73 03/08/21 18:32 103 H 98 03/08/21 18:27 101 H 97 03/08/21 18:22 102 H 98 03/08/21 18:17 108 H 98 03/08/21 18:15 105 H 165/84 03/08/21 18:12 107 H 97 03/08/21 18:07 105 H 98 03/08/21 18:02 105 H 98 03/08/21 17:57 105 H 98 03/08/21 17:55 107 H 183/92 03/08/21 17:52 105 H 183/92 98 03/08/21 17:47 106 H 98 03/08/21 17:46 105 H 192/91 03/08/21 17:43 111 H 94 03/08/21 17:42 115 H 205/84 95 03/08/21 17:41 98.9 F 18 98 03/08/21 17:40 106 H 190/92 03/08/21 17:38 106 H 190/99 03/08/21 17:37 109 H 93 03/08/21 17:32 102 H 190/98 94 03/08/21 17:30 98 03/08/21 17:29 104 H 176/92 03/08/21 17:27 106 H 90 03/08/21 17:22 107 H 97 03/08/21 17:21 104 H 180/108 83 L 03/08/21 17:16 107 H 175/104 03/08/21 14:10 96 03/08/21 14:06 98.5 F 103 H 20 166/99 95 03/08/21 13:57 107 H 166/99 03/08/21 13:00 98.5 F 113 H 19 167/103 97 03/08/21 11:31 111 H 21 189/126 96 03/08/21 11:15 113 H 182/97 03/08/21 10:16 98.8 F 94 H 16 197/121 97 Intake and Output 03/08/21 03/09/21 03/09/21 22:59 06:59 14:59 Output Total 2900 325 Balance -2900 -325 Output: Urine 2900 325 Indwelling Catheter 2900 325 Other: Total, Output Amount 200 100 - Exam Narrative Exam: Pt denies blurred vision, spots before her eyes, chest pain, shortness of breath, and upper abdominal pain. States that she has a LITTLE behind her right eye. Just medicated with Extra Strength Tylenol and the LITTLE is resolving. Breasts: Present: deferred Cardiovascular: Present: Normal S1, Normal S2 Lungs: Present: Clear to auscultation Abdomen: Present: normal appearance, soft, normal bowel sounds Uterus: Present: normal Extremities: Present: edema (Trace edema noted. ) Deep Tendon Reflex Grade: Normal +2 - Labs Labs: Abnormal lab results 03/08/21 03/08/21 03/08/21 Range/Units 11:18 11:18 11:18 WBC 13.0 H (4.5-11.0) K/mm3 Plt Count 451 H (140-440) K/mm3 Lymph % (Auto) 8.9 L (13.4-35.0) % [place] % (Auto) 8.7 H (0.0-7.3) % [place] # (Auto) 1.1 H (0.0-0.8) K/mm3 Seg Neutrophils % 79.5 H (40.0-70.0) % Seg Neutrophils # 10.3 H (1.8-7.7) K/mm3 Carbon Dioxide 20 L (22-30) mmol/L BUN 4 L (7-17) mg/dL Magnesium (1.7-2.3) mg/dL AST 62 H (5-40) units/L NT-Pro-B Natriuret Pep 598.9 H (0-450) pg/mL Albumin 3.1 L (3.9-5) g/dL Urine Blood (Negative) Urine WBC (Auto) (0.0-6.0) /HPF 03/08/21 03/09/21 Range/Units Unknown 01:09 WBC (4.5-11.0) K/mm3 Plt Count (140-440) K/mm3 Lymph % (Auto) (13.4-35.0) % [place] % (Auto) (0.0-7.3) % [place] # (Auto) (0.0-0.8) K/mm3 Seg Neutrophils % (40.0-70.0) % Seg Neutrophils # (1.8-7.7) K/mm3 Carbon Dioxide (22-30) mmol/L BUN (7-17) mg/dL Magnesium 3.00 H (1.7-2.3) mg/dL AST (5-40) units/L NT-Pro-B Natriuret Pep (0-450) pg/mL Albumin (3.9-5) g/dL Urine Blood Moderate A (Negative) Urine WBC (Auto) 30.0 H (0.0-6.0) /HPF
[2021-03-09] MEDS: ACETAMINOPHEN 500 MG TAB PO PRN ×2 (07:46→13:32)
[2021-03-09] MEDS: IBUPROFEN 800 MG TAB PO SCH ×2 (14:32→23:49)
[2021-03-09] MEDS: NIFEdipine XL 30 MG TAB PO SCH (20:46)
[2021-03-10] MEDS: NIFEdipine XL 30 MG TAB PO SCH (10:09)
--- NOTE | 2021-03-10 12:32 | Discharge Summary ---
Providers - Providers Date of Admission: 03/08/21 15:26 Date of discharge: 03/10/21 (Pt in good condition.) Attending physician: DAMIAN OLSON Primary care physician: DAMIAN OLSON Hospitalization Reason for admission: other (Re admit for pre eclampsia.) Discharge diagnosis: other (Pre eclampsia in good condition and can be discharged home. ) Pertinent studies: Pt denies LITTLE, blurred vision, spots before her eyes, shortness of breath, chest pain, and upper abdominal pain. We discussed when to call the consulting marine engineer provider and go to the ER for evaluation. We also discussed how to take proper blood pressure. Pt verbalized understanding. Hospital course: S: Pt is doing well. Denies Pre eclampsia s/sx. O: VSS. Blood pressure ranges have been 130-150's/60-90's. Adequate I&O's. A: 35 y.o. s/p PPD #5 (pre e and mag during previous admission),readmission for pre eclampsia, s/p magnesium infusion. P: Discharge home with instructions. Pt to schedule blood pressure check in the office in 1 week. Condition at discharge: Good Disposition: 01 HOME / SELF CARE / HOMELESS - Discharge Diagnoses (1) Shortness of breath Status: Acute (2) Pre-eclampsia, Status: Acute Plan - Provider Discharge Summary Activity: routine, no sex for 6 weeks, no heavy lifting 4 weeks, no strenuous exercise Diet: other (Low sodium diet.) Instructions: routine Additional instructions: [] Smoking cessation referral if applicable(refer to patient education folder for contact #) [] Refer to [facility] Booklet Call your doctor immediately for: * Fever > 100.5 * Heavy vaginal bleeding ( >1 pad per hour) * Severe persistent headache * Shortness of breath * Reddened, hot, painful area to leg or breast * Drainage or odor from incision. * Keep incision clean and dry at all times and follow doctor's instructions regarding bathing/showering Please call the office and schedule a blood pressure check in a week. If you have any LITTLE, blurred vision, spots before your eyes, chest pain, feeling like you can't catch a breath, and pain in your upper belly, you need to call the office and immediately go to the ER for an evaluation. Taking your blood pressure at home Please take your blood pressure at least once daily Take your blood pressure medication as written by your provider Taking your blood pressure with a wrist monitor: 1. Put the blood pressure cuff on your wrist. Make sure it is not on the bone of your wrist. 2. Sit with your legs uncrossed and feet flat on the ground. 3. Wait 5-10 minutes before taking your blood pressure. 4. If you wrist monitor requires you to put your arm across your chest: After 5-10 minutes, put your arm across your chest like you are about to say the pledge of tatace. Taking your blood pressure with a cuff monitor: 1. Put the blood pressure cuff on your arm. 2. Sit with your legs uncrossed and feet flat on the ground. Make sure your arm is relaxed on a table or your kitchen table and bent at a 90 degree angle. 3. After 5-10 minutes push the button to take your blood pressure. While you are at home, if you experience a headache, blurred vision, spots before your eyes, chest pain, shortness of breath, and pain in your upper belly, and/or your blood pressure is 150/90 or greater please call the on-call provider immediately. - Follow up plan Follow up: KEMAL CA MD [Referring] - 3-5 Days MIGUE DUENAS MD [Staff Physician] - 7 Days
[2021-03-10 17:14] VITALS: BP 136/87
== END 2021-03-10 17:30 | disposition home or self-care (01) | DRG 776 ==
LOC: ED 10:11 → LD 15:26 → OB 03-09 17:49
PROVIDERS: ADMIT Obstetrics & Gynecology; ATTEND Obstetrics & Gynecology
DX: O14.95 Unspecified pre-eclampsia, complicating the puerperium (principal); Z20.822 Contact with and (suspected) exposure to COVID-19; Z91.040 Latex allergy status; Z91.010 Allergy to peanuts; Z91.013 Allergy to seafood; Z91.018 Allergy to other foods; Z87.891 Personal history of nicotine dependence
CPT/HCPCS: 36415; 71046; 71275; 80053; 81001; 83735; 83880; 85025; 86850; 86900; 86901; 87076; 87086; 87186; G0378; J0360; J1940; J3475; J7120; Q9967; U0003